=== PATIENT | female | born 1945 | race Caucasian/White ===

== ENCOUNTER 2020-01-01 16:41 | Inpatient (IN) | payer MEDICARE ==
[2020-01-01 17:27] LABS: #Eosinphils 0.2 thou/uL (0.0-0.7); #Lymphocytes 0.2 thou/uL (1.20-3.40); #Monocytes 0.4 thou/uL (0.11-0.59); #Neutrophils 4.1 thou/uL (1.40-6.50); %Basophils 0.6 % (0.0-1.0); %Lymphocytes 3.7 % (21.0-51.0); %Monocytes 8.1 % (0.0-10.0); %Neutrophils 83.6 % (42.0-75.0); Hemoglobin 9.2 g/dL (12.0-16.0); Mean Corpuscular HGB CONC 31.1 g/dL (32.0-36.0); Mean Corpuscular Hemoglobin 28.8 pg (27.0-31.0); Mean Corpuscular Volume 92.7 fL (78.0-98.0); Mean Platelet Volume 7.8 fL (7.4-10.4); Platelet Count 220 thou/uL (130-400); RBC Distribution Width 15.1 % (11.5-14.5); Red Blood Cell (RBC) Count 3.18 mill/uL (4.20-5.40); White Blood Cell (WBC) Count 4.8 thou/uL (4.8-10.8)
--- NOTE | 2020-01-01 17:27 | RAD ---
RADIOGRAPH CHEST 1 VIEW: DATE: 01/01/2020 TIME: 5:08 PM HISTORY: 74-year-old female with abdominal pain, nausea, and vomiting. History of uterine cancer. COMPARISON: none FINDINGS: There is a large number of small noncalcified pulmonary nodules in the bilateral upper, mid, and lowe r lung zones. No cardiomegaly. No consolidation. No pneumothorax. Left subclavian implantable vascular access port distal tip at SVC. IMPRESSION: Large number of small bilateral pulmonary nodules: Evidence for pulmonary metastasis.
[2020-01-01 17:43] LABS: ALT (SGPT) 31 U/L (8-55); AST (SGOT) 49 U/L (5-34); Alkaline Phosphatase 81 U/L (40-110); Anion Gap 19 mmol/L (10-20); BUN (Urea Nitrogen) 57 mg/dL (9.8-20.1); Bilirubin, Total 0.5 mg/dL (0.2-1.2); CK (CPK) 705 U/L (29-168); Calc. Creatinine Clearance 0 mL/min (70-130); Calcium 7.5 mg/dL (7.8-10.44); Carbon Dioxide 15 mmol/L (23-31); Chloride 110 mmol/L (98-107); Estimated GFR-MDRD 22; Globulin 2.5 g/dL (2.4-3.5); Glucose 115 mg/dL (83-110); Potassium 3.3 mmol/L (3.5-5.1); Protein, Total 5.5 g/dL (6.0-8.3); Sodium 141 mmol/L (136-145)
[2020-01-01 18:53] LABS: Bilirubin Negative (Negative); Blood, Urine Negative (Negative); Clarity Clear (Clear); Glucose, Urine (Dipstick) Normal (Negative); Leukocyte Negative Leu/uL (Negative); Nitrite Negative (Negative); Protein, Urine (Dipstick) 30 mg/dL (Neg-Trace); RBC/HPF 0-3 HPF (0-3); Squamous Epithelial 0-3 HPF (0-3); Urobilinogen Normal mg/dL (Less than 2); WBC/HPF 0-3 HPF (0-3)
[2020-01-01 18:56] LABS: Bacteria/HPF 1+ HPF (None Seen)
[2020-01-01 18:57] LABS: White Blood Cell Cast 0-3 LPF (None Seen)
--- NOTE | 2020-01-01 19:15 | PDOC.FPRHP ---
- History of Present Illness Chief Complaint: nausea, vomiting, decreased urine output History of Present Illness: 74 yo F with PMH uterine cancer is transferred from [facility]. Reports 2 day history of decreased PO intake, nausea, vomiting. Has had soft stool. Endorses decreased urine output that has fluctuated over the past weeks. Denies chest pain, SOB, difficulty breathing. Hx of uterine cancer under treatment for past [address] Whitfield manages chemo. Last treatment 3 weeks ago. Reports lower extremity edema and redness that patient believes is a side effect from morphine use. Notes this is improving. PCP: Dr. Ignacio in [place] ED Course: KCl 40 meq - Allergies/Adverse Reactions Allergies Allergy/AdvReac Type Severity Reaction Status Date / Time Penicillins Allergy Verified 11/17/19 00:37 - Home Medications Medication Instructions Recorded Confirmed Type Carvedilol [Coreg] 25 mg PO BID 01/01/20 01/01/20 History Morphine ER [MS Contin] 30 mg PO Q8HR 01/01/20 01/01/20 History - History PMHx: HTN, uterine cancer PSHx: Hysterectomy FHx: noncontributory Social: Denies tobacco, alcohol, drug use - Review of Systems General: reports: weight/appetite/sleep changes. denies: fever/chills ENT: denies: nasal congestion, rhinorrhea Respiratory: denies: cough, shortness of breath Cardiovascular: reports: edema. denies: chest pain, palpitation Gastrointestinal: reports: nausea, vomiting. denies: constipation, abdominal pain Genitourinary: reports: other (decreased output). denies: incontinence, dysuria Skin: denies: rashes, lesions Musculoskeletal: denies: pain, tenderness Neurological: reports: weakness. denies: seizure - Vital signs BP: 103/46 HR: 85 RR: 22 Tmax: 97.9 Pox: 95% on RA Wt: 116 - Physical Exam Constitutional: awake, alert and oriented, well developed HEENT: normocephalic and atraumatic, other (dry MM) Heart: RRR, other (3/6 systolic ejection murmur) Lungs: CTAB, no respiratory distress Abdomen: soft, non-tender, bowel sounds present, other (palpable density on R abdomen) Musculoskeletal: normal structure, normal tone Neurological: no focal deficit Skin: other (2-3+ pitting edema BLE, erythema up to shins) Psychiatric: normal mood and affect, intact recent and remote memory FMR H&P: Results - Labs Result Diagrams: 01/03/20 09:39 01/07/20 06:07 Lab results: WBC 4.8 thou/uL (4.8-10.8) 01/01/20 17:11 Hgb 9.2 g/dL (12.0-16.0) L 01/01/20 17:11 Hct 29.5 % (36.0-47.0) L 01/01/20 17:11 MCV 92.7 fL (78.0-98.0) 01/01/20 17:11 Plt Count 220 thou/uL (130-400) 01/01/20 17:11 Neutrophils % 83.6 % (42.0-75.0) H 01/01/20 17:11 Sodium 141 mmol/L (136-145) 01/01/20 17:11 Potassium 3.3 mmol/L (3.5-5.1) L 01/01/20 17:11 Chloride 110 mmol/L (98-107) H 01/01/20 17:11 Carbon Dioxide 15 mmol/L (23-31) L 01/01/20 17:11 BUN 57 mg/dL (9.8-20.1) H 01/01/20 17:11 Creatinine 2.21 mg/dL (0.6-1.1) H 01/01/20 17:11 Glucose 115 mg/dL (83-110) H 01/01/20 17:11 Calcium 7.5 mg/dL (7.8-10.44) L 01/01/20 17:11 Total Bilirubin 0.5 mg/dL (0.2-1.2) 01/01/20 17:11 AST 49 U/L (5-34) H 01/01/20 17:11 ALT 31 U/L (8-55) 01/01/20 17:11 Alkaline Phosphatase 81 U/L (40-110) 01/01/20 17:11 Creatine Kinase 705 U/L (29-168) H 01/01/20 17:11 Serum Total Protein 5.5 g/dL (6.0-8.3) L 01/01/20 17:11 Albumin 3.0 g/dL (3.4-4.8) L 01/01/20 17:11 Urine Ketones Negative mg/dL (Negative) 01/01/20 17:57 Urine Blood Negative (Negative) 01/01/20 17:57 Urine Nitrite Negative (Negative) 01/01/20 17:57 Ur Leukocyte Esterase Negative Reggie/uL (Negative) 01/01/20 17:57 Urine RBC 0-3 HPF (0-3) 01/01/20 17:57 Urine WBC 0-3 HPF (0-3) 01/01/20 17:57 Ur Squamous Epith Cells 0-3 HPF (0-3) 01/01/20 17:57 Urine Bacteria 1+ HPF (None Seen) A 01/01/20 17:57 - Radiology Interpretation Chest x-ray Status: report reviewed by me Additional comment: numerous small bilateral pulmonary nodules consistent with metastatic disease FMR H&P: A/P - Plan 74 yo F with PMH metastatic uterine cancer transferred from [facility] for dehydration and kidney injury. ANIBAL on CKD3 2/2 hypovolemia, dehydration - patient appears dehydrated on exam - Cr 2.21, CK 705 Bun/Cr 23 - ordered 1L bolus, then continue LR @ 125 - Likely prerenal. Urine studies ordered to calculate Fena. - UA negative for infection-1+ bacteria but neg nitrites, LE. - Consider cardiorenal, bnp pending; however, unknown extent of abd mass and consider compression of IVC Nausea/vomiting - antiemetics prn Hypokalemia - replaced with 40meq in ED - recheck in am Metastatic uterine cancer - metastasis in abdomen, lung - Oncology, Dr. Whitfield consult in AM, was due for keytruda chemo today, delayed for NV - has been on Keytruda Lower extremity edema - likely 2/2 chronic venous stasis but will check BNP - patient notes she previously used compression stocking but edema has improved without them - monitor strict IsOs Normocytic anemia - stable compared to prior HTN - hold home carvedilol for now, will restart when BP can tolerate Diet: advance as tolerated DVT ppx: Lovenox renally dosed Attending: Dispo: admit to medical floor, inpatient. Expected LOS >48 hours Code Status: Chem only "no extraordinary measures" no compression no intubation FMR H&P: Upper Level - Plan Date/Time: 01/01/201912 UL H&P Dr Desire Alvarez scribed encounter Addendum - Attending - Attending Attestation Date/Time: 01/07/20 220 I personally evaluated the patient and discussed the management with Dr. Calle on I agree with the History, Examination, Assessment and Plan documented above with any addition or exceptions noted below. 74 y.o. WF with h/o Metastatic uterine CA here with intractable N/V, ANIBAL, hip pain. IvF resuscitation/antiemetics. Onc consult for continued malignancy mgt.
[2020-01-01] MEDS ORDERED: Ondansetron ODT 4 MG TAB PO PRN (19:33)
[2020-01-01] MEDS ORDERED: Calcium Carbonate 500 MG ChewTAB PO PRN (19:33)
[2020-01-01] MEDS ORDERED: HYDROcodone/Acetaminophen 7.5/325 mg Tablet PO PRN (19:33)
[2020-01-01] MEDS ORDERED: Acetaminophen 325 MG TAB PO PRN (19:33)
[2020-01-01] MEDS ORDERED: Acetaminophen 650 MG Suppository PR PRN (19:33)
[2020-01-01] MEDS: Lactated Ringer's 1,000 ML IV SCH (22:34)
[2020-01-01 22:36] VITALS: BMI 37.7
[2020-01-01] MEDS ORDERED: Lactated Ringer's 1,000 ML IV SCH (23:59)
[2020-01-02] MEDS: Lactated Ringer's 1,000 ML IV SCH ×3 (04:40→20:48)
[2020-01-02 06:11] LABS: ALT (SGPT) 28 U/L (8-55); AST (SGOT) 47 U/L (5-34); Albumin 2.8 g/dL (3.4-4.8); Alkaline Phosphatase 71 U/L (40-110); Anion Gap 16 mmol/L (10-20); BUN (Urea Nitrogen) 58 mg/dL (9.8-20.1); Bilirubin, Total 0.5 mg/dL (0.2-1.2); Calc. Creatinine Clearance 42 mL/min (70-130); Calcium 7.2 mg/dL (7.8-10.44); Carbon Dioxide 15 mmol/L (23-31); Chloride 113 mmol/L (98-107); Estimated GFR-MDRD 23; Globulin 2.3 g/dL (2.4-3.5); Glucose 82 mg/dL (83-110); Potassium 3.1 mmol/L (3.5-5.1); Protein, Total 5.1 g/dL (6.0-8.3); Sodium 141 mmol/L (136-145)
--- NOTE | 2020-01-02 06:56 | PDOC.FM ---
- Subjective Subjective: Doing well this morning. Was sleeping comfortably. - Objective MAR Reviewed: Yes Vital Signs & Weight: Vital Signs (12 hours) Temp Pulse Resp BP Pulse Ox 01/02/20 04:00 98.0 F 82 20 109/64 93 L 01/02/20 02:04 105/62 01/02/20 00:28 97.8 F 86 20 105/60 94 L 01/01/20 20:00 94 L 01/01/20 19:40 98.1 F 89 18 121/56 L 94 L 01/01/20 19:35 94 L Weight Weight 112.536 kg Result Diagrams: 01/01/20 17:11 01/02/20 05:19 Phys Exam - Physical Examination Constitutional: NAD HEENT: PERRLA, moist MMs Neck: no nodes, no JVD Respiratory: no wheezing, no rales, no rhonchi, clear to auscultation bilateral Cardiovascular: RRR, no significant murmur, no rub Gastrointestinal: soft, non-tender Musculoskeletal: edema present Bilateral pitting edema. Venous stasis dermatitis bandaged. Neurological: non-focal, moves all 4 limbs Psychiatric: normal affect, A&O x 3 Skin: no rash, normal turgor Dx/Plan (1) ANIBAL (acute kidney injury) Code(s): N17.9 - ACUTE KIDNEY FAILURE, UNSPECIFIED Status: Acute (2) Uterine cancer Code(s): C55 - MALIGNANT NEOPLASM OF UTERUS, PART UNSPECIFIED Status: Acute (3) HTN (hypertension) Code(s): I10 - ESSENTIAL (PRIMARY) HYPERTENSION Status: Acute (4) Edema Code(s): R60.9 - EDEMA, UNSPECIFIED Status: Acute (5) Hypokalemia Code(s): E87.6 - HYPOKALEMIA Status: Acute - Plan Plan: 74 yo F with PMH metastatic uterine cancer transferred from [place] for dehydration and kidney injury. ANIBAL on CKD3 2/2 hypovolemia, dehydration - Prerenal FeNa. - On 125mL/hr LR. Reluctant to increase fluids in setting of lower extremity edema. Will monitor fluid status closely. - Cr: 2.21 > 2.11 - UA negative for infection-1+ bacteria but neg nitrites, LE. Nausea/vomiting - antiemetics prn Hypokalemia - 3.1 this morning. K-dur 40 po BID. - Mag level pending. Metastatic uterine cancer - metastasis in abdomen, lung - Oncology, Dr. Whitfield consult in AM, was due for chemo today, delayed for NV - has been on Keytruda Lower extremity edema - likely 2/2 chronic venous stasis but will check BNP - patient notes she previously used compression stocking but edema has improved without them - monitor strict IOs. - ECHO ordered, no history of heart failure in chart review. Normocytic anemia - stable compared to prior HTN - hold home carvedilol for now, will restart when BP can tolerate Diet: advance as tolerated DVT ppx: Lovenox renally dosed Dispo: admit to medical floor, inpatient. Expected LOS >48 hours Code Status: Chem only "no extraordinary measures" no compression no intubation Addendum - Attending - Attending Attestation Date/Time: 01/02/20 1230 I personally evaluated the patient and discussed the management with Dr. Richards I agree with the History, Examination, Assessment and Plan documented above with any addition or exceptions noted below - Patient c/o feeling like she needs to urinate but is unable. Afebrile VSS. A/P: 1) N/V - improved; continue anti-emetics. 2) ANIBAL- Cr improved but still not back to baseline; continue IVF 3 ) Decreased urination- will check bladder scan and I/O cath if needed.
[2020-01-02] MEDS: HYDROcodone/Acetaminophen 7.5/325 mg Tablet PO PRN (08:51)
[2020-01-02] MEDS: Potassium Chloride 20 MEQ TAB PO SCH ×2 (08:53→15:52)
[2020-01-02] MEDS: Gabapentin 100 MG CAP PO SCH ×3 (08:53→20:44)
[2020-01-02] MEDS ORDERED: Enoxaparin Sodium 30 MG/0.3 ML SYRINGE SC SCH (09:00)
[2020-01-02] MEDS: Morphine 4 MG/ML VIAL SLOW IVP PRN (11:45)
--- NOTE | 2020-01-02 19:45 | CON ---
DATE OF CONSULTATION: REASON FOR CONSULTATION: Uterine cancer. HISTORY OF PRESENT ILLNESS: Ms. 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 She has undergone multiple chemotherapy treatment. She had imaging done in October, which showed progression in her pelvis. She has chronic left pelvic pain and noted soft tissue mass. She was started on IV Keytruda immunotherapy and was to begin oral chemotherapy lenvatinib. She received her first dose of cultured on December 10 and was due for her second cycle yesterday. She has received the oral lenvatinib, but has not started the medication. She called our clinic yesterday complaining of severe lower extremity pain, swelling, and nausea. She eventually presented to the emergency room for further evaluation. Her creatinine was elevated at 2.21 and she was diagnosed with dehydration and acute kidney injury as well as intractable pain and was admitted for further treatment. This morning, she states that her lower extremity edema is better, but she continues to have left buttock pain consistent with sciatica. She is having urinary retention this morning and is having significant discomfort from this. PAST MEDICAL HISTORY: 1. Metastatic uterine cancer. 2. Chronic bilateral lower extremity edema. 3. Hypertension. 4. Aseptic cholelithiasis. PAST SURGICAL HISTORY: 1. Hysterectomy. 2. Tumor debulking. ALLERGIES: PENICILLIN. HOME MEDICATIONS: 1. Carvedilol 25 b.i.d. 2. Hydrocodone 10/325 p.r.n. 3. Lenvima two caplets daily. 4. MS Contin 30 mg q.8 hours. FAMILY HISTORY: Noncontributory. SOCIAL HISTORY: She is . No children. Lives with her spouse. No alcohol, tobacco, or illicit drug use. REVIEW OF SYSTEMS: Ten-point review of systems negative except for noted in HPI. PHYSICAL EXAMINATION: VITAL SIGNS: Temperature 97.9, pulse is 85, respiratory rate 20, blood pressure is 119/57, and she is 95% on room air. GENERAL: Well-developed, well-nourished female, in mild discomfort. HEENT: Normocephalic, atraumatic. Pupils are equal and reactive to light. NECK: Supple. CARDIOVASCULAR: Regular rate and rhythm. LUNGS: Clear anterior. ABDOMEN: Obese. Bowel sounds are positive. She does have tenderness in the pubic area. EXTREMITIES: She has 3+ pitting edema from her upper thigh to her toes with weeping edema in the left leg. NEUROLOGIC: Nonfocal. PERTINENT LABS AND X-RAYS: Current WBCs are 4.8, hemoglobin 9.2, hematocrit 29.5, platelet count is 220, 84% neutrophils, 4% lymphocytes. Sodium is 141, potassium 3.1, chloride 113, CO2 is 15, BUN is 58, creatinine 2.11, calcium 7.2, magnesium 1.2, bilirubin 0.5, AST is 47, ALT is 28, alkaline phosphatase is 71, serum total protein is 5.1, albumin 2.8, and globulin 2.3. BNP is 290. UA was negative. Chest x-ray showed pulmonary nodules consistent with her metastatic disease. ASSESSMENT: 1. Acute on chronic kidney injury. 2. Uterine cancer. 3. Urinary retention. 4. Dehydration. 5. Chronic bilateral lower extremity edema. DISCUSSION: The patient has been receiving IV fluids with minimal improvement in her kidney function. She now has urinary retention and anticipate catheter insertion shortly. She continues to have significant left hip pain, likely secondary to distended bladder and fluid overload. We would continue her MS Contin and her hydrocodone. She has not started her oral chemotherapy and we would continue to hold during this hospitalization. She will follow up in our clinic to resume treatment with Dr. Whitfield when she recovers from this illness. Thank you for the consult. Job ID: [id number] MTDD
[2020-01-02] MEDS: Morphine ER 30 MG TAB PO SCH (20:44)
[2020-01-02] MEDS: Heparin 5,000 UNITS/ML VIAL SC SCH (20:44)
[2020-01-03] MEDS: Lactated Ringer's 1,000 ML IV SCH ×2 (04:09→16:02)
[2020-01-03 06:19] LABS: Anion Gap 16 mmol/L (10-20); BUN (Urea Nitrogen) 50 mg/dL (9.8-20.1); Calc. Creatinine Clearance 57 mL/min (70-130); Calcium 7.6 mg/dL (7.8-10.44); Carbon Dioxide 16 mmol/L (23-31); Chloride 115 mmol/L (98-107); Estimated GFR-MDRD 32; Glucose 80 mg/dL (83-110); Potassium 3.5 mmol/L (3.5-5.1); Sodium 143 mmol/L (136-145)
--- NOTE | 2020-01-03 07:19 | PDOC.FM ---
- Subjective Subjective: Doing well this morning. Less nauseated than yesterday. Tolerating oral intake, with mild nausea. - Objective MAR Reviewed: Yes Vital Signs & Weight: Vital Signs (12 hours) Temp Pulse Resp BP Pulse Ox 01/03/20 04:00 99.2 F 84 20 126/70 95 01/03/20 00:00 99.2 F 83 20 143/70 H 94 L 01/02/20 20:00 95 01/02/20 19:32 98.4 F 83 20 116/66 95 Weight Admit Weight 112.536 kg Weight 112.536 kg I&O: 01/02/20 01/03/20 01/04/20 06:59 06:59 06:59 Intake Total 3640 Output Total 2250 Balance 1390 Result Diagrams: 01/03/20 09:39 01/03/20 05:31 Phys Exam - Physical Examination Constitutional: NAD HEENT: PERRLA, moist MMs Neck: supple, full ROM Respiratory: no wheezing, no rales, no rhonchi, clear to auscultation bilateral Cardiovascular: RRR, no significant murmur, no rub Gastrointestinal: soft, non-tender Musculoskeletal: edema present Neurological: non-focal, normal sensation Psychiatric: normal affect, A&O x 3 Skin: normal turgor Dx/Plan (1) ANIBAL (acute kidney injury) Code(s): N17.9 - ACUTE KIDNEY FAILURE, UNSPECIFIED Status: Acute (2) Uterine cancer Code(s): C55 - MALIGNANT NEOPLASM OF UTERUS, PART UNSPECIFIED Status: Acute (3) HTN (hypertension) Code(s): I10 - ESSENTIAL (PRIMARY) HYPERTENSION Status: Acute (4) Edema Code(s): R60.9 - EDEMA, UNSPECIFIED Status: Acute (5) Hypokalemia Code(s): E87.6 - HYPOKALEMIA Status: Acute - Plan Plan: 74 yo F with PMH metastatic uterine cancer transferred from [place] for dehydration and kidney injury. ANIBAL on CKD3 2/2 hypovolemia, dehydration - Prerenal FeNa. - Has been on 125mL/hr LR, will reduce to 75ml/hr today and monitor intake. - Cr: 2.21 > 2.11 > 1.57 - UA negative for infection-1+ bacteria but neg nitrites, LE. Culture pending. Nausea/vomiting - antiemetics prn Hypokalemia, hypomagnesemia - 3.5 this morning. Mag low. will replace mag. Metastatic uterine cancer - metastasis in abdomen, lung - Oncology, Dr. Whitfield consulted, was due for chemo today, delayed for NV. - has been on Keytruda Lower extremity edema - likely 2/2 chronic venous stasis but will check BNP - monitor strict IOs. - ECHO EF 55-60%. Diastolic dysfunction. Normocytic anemia - stable compared to prior HTN - hold home carvedilol for now, will restart when BP can tolerate Diet: advance as tolerated DVT ppx: Lovenox renally dosed Dispo: admit to medical floor, inpatient. Expected LOS >48 hours Code Status: Chem only "no extraordinary measures" no compression no intubation Addendum - Attending - Attending Attestation Date/Time: 01/03/20 9188 I personally evaluated the patient and discussed the management with Dr. Richards I agree with the History, Examination, Assessment and Plan documented above with any addition or exceptions noted below - Patient c/o back pain when she moves; controlled when lying still. Tm101.8 VSS. A/P: 1) ANIBAL- improved; continue IVF due to poor po intake. 2) Fever- urine culture negative to date. Will obtain blood cultures; continue monitoring. Incentive spirometer to bedside. 3) Left hip pain/back pain h/o fall 1 week ago- will check hip x-ray.
[2020-01-03] MEDS ORDERED: Magnesium 2 GM/50 ML 2 GM in Premix Bag 1 BAG IVPB SCH (07:30)
[2020-01-03] MEDS: Morphine ER 30 MG TAB PO SCH ×2 (08:32→20:28)
[2020-01-03] MEDS: Gabapentin 100 MG CAP PO SCH ×3 (08:34→20:28)
[2020-01-03] MEDS: Heparin 5,000 UNITS/ML VIAL SC SCH ×3 (08:34→20:28)
[2020-01-03 09:48] LABS: #Eosinphils 0.3 thou/uL (0.0-0.7); #Lymphocytes 0.6 thou/uL (1.20-3.40); #Monocytes 0.6 thou/uL (0.11-0.59); #Neutrophils 3.8 thou/uL (1.40-6.50); %Basophils 0.5 % (0.0-1.0); %Eosinophils 5.4 % (0.0-10.0); %Lymphocytes 11.2 % (21.0-51.0); %Monocytes 11.5 % (0.0-10.0); %Neutrophils 71.3 % (42.0-75.0); Hemoglobin 8.4 g/dL (12.0-16.0); Mean Corpuscular HGB CONC 31.2 g/dL (32.0-36.0); Mean Corpuscular Hemoglobin 28.7 pg (27.0-31.0); Mean Platelet Volume 7.7 fL (7.4-10.4); Platelet Count 220 thou/uL (130-400); RBC Distribution Width 15.2 % (11.5-14.5); Red Blood Cell (RBC) Count 2.92 mill/uL (4.20-5.40); White Blood Cell (WBC) Count 5.3 thou/uL (4.8-10.8)
[2020-01-03] MEDS: HYDROcodone/Acetaminophen 7.5/325 mg Tablet PO PRN (10:39)
--- NOTE | 2020-01-03 11:17 | PDOC.MOPN ---
Interval History: severe left hip pain with movement. Unable to move leg. - Vital Signs Vital Signs: Vital Signs (12 hours) Temp Pulse Resp BP BP Pulse Ox 01/03/20 08:51 98.8 F 01/03/20 07:50 101.8 F H 89 18 134/68 94 L 01/03/20 04:00 99.2 F 84 20 126/70 95 01/03/20 00:00 99.2 F 83 20 143/70 H 94 L Weight Admit Weight 248 lb 1.6 oz Weight 248 lb 1.6 oz - Physical Exam General: Alert HEENT: Atraumatic, PERRLA, EOMI, Mucous membr. moist/pink Lungs: Clear to auscultation Cardiovascular: Regular rate Abdomen: Normal bowel sounds Extremities: Other Neurological: Normal speech - Labs Result Diagrams: 01/03/20 09:39 01/03/20 05:31 Lab results: Laboratory Results - last 24 hr 01/03/20 09:39: WBC 5.3, RBC 2.92 L, Hgb 8.4 L, Hct 26.9 L, MCV 92.0, MCH 28.7, MCHC 31.2 L, RDW 15.2 H, Plt Count 220, MPV 7.7, Neutrophils % 71.3, Lymphocytes % 11.2 L, Monocytes % 11.5 H, Eosinophils % 5.4, Basophils % 0.5, Neutrophils # 3.8, Lymphocytes # 0.6 L, Monocytes # 0.6 H, Eosinophils # 0.3, Basophils # 0.0 01/03/20 05:31: Sodium 143, Potassium 3.5, Chloride 115 H, Carbon Dioxide 16 L, Anion Gap 16, BUN 50 H, Creatinine 1.57 H, Estimated GFR (MDRD) 32, Glucose 80 L , Calcium 7.6 L Status: lab reviewed by me A/P - Problem (1) Leg pain, left Current Visit: Yes Code(s): M79.605 - PAIN IN LEFT LEG Status: Acute (2) ANIBAL (acute kidney injury) Current Visit: Yes Code(s): N17.9 - ACUTE KIDNEY FAILURE, UNSPECIFIED Status : Acute (3) Uterine cancer Current Visit: Yes Code(s): C55 - MALIGNANT NEOPLASM OF UTERUS, PART UNSPECIFIED Status: Acute - Plan Plan: will get xray of left hip NPO for now until xray complete continue pain medication Appreciate Family Practice management
[2020-01-03] MEDS: Morphine 4 MG/ML VIAL SLOW IVP PRN ×2 (11:32→18:13)
--- NOTE | 2020-01-03 11:33 | PDOC.MOPN ---
- Vital Signs Vital Signs: Vital Signs (12 hours) Temp Pulse Resp BP BP Pulse Ox 01/03/20 08:51 98.8 F 01/03/20 07:50 101.8 F H 89 18 134/68 94 L 01/03/20 04:00 99.2 F 84 20 126/70 95 01/03/20 00:00 99.2 F 83 20 143/70 H 94 L Weight Admit Weight 248 lb 1.6 oz Weight 248 lb 1.6 oz - Labs Result Diagrams: 01/03/20 09:39 01/03/20 05:31 Lab results: Laboratory Results - last 24 hr 01/03/20 09:39: WBC 5.3, RBC 2.92 L, Hgb 8.4 L, Hct 26.9 L, MCV 92.0, MCH 28.7, MCHC 31.2 L, RDW 15.2 H, Plt Count 220, MPV 7.7, Neutrophils % 71.3, Lymphocytes % 11.2 L, Monocytes % 11.5 H, Eosinophils % 5.4, Basophils % 0.5, Neutrophils # 3.8, Lymphocytes # 0.6 L, Monocytes # 0.6 H, Eosinophils # 0.3, Basophils # 0.0 01/03/20 05:31: Sodium 143, Potassium 3.5, Chloride 115 H, Carbon Dioxide 16 L, Anion Gap 16, BUN 50 H, Creatinine 1.57 H, Estimated GFR (MDRD) 32, Glucose 80 L , Calcium 7.6 L A/P - Problem (1) Leg pain, left Current Visit: Yes Code(s): M79.605 - PAIN IN LEFT LEG Status: Acute (2) ANIBAL (acute kidney injury) Current Visit: Yes Code(s): N17.9 - ACUTE KIDNEY FAILURE, UNSPECIFIED Status : Acute (3) Uterine cancer Current Visit: Yes Code(s): C55 - MALIGNANT NEOPLASM OF UTERUS, PART UNSPECIFIED Status: Acute
--- NOTE | 2020-01-03 12:58 | RAD ---
Exam: One view pelvis HISTORY: Fall. Pain FINDINGS: Displaced left iliac wing fracture. IMPRESSION: Displaced left iliac wing fracture.
--- NOTE | 2020-01-03 13:22 | RAD ---
LEFT HIP 2 VIEWS: HISTORY: Hip pain, fall 1 week ago. FINDINGS/IMPRESSION: There is a fracture involving the supraacetabular region of the left iliac bone. A displaced fractur e fragment is seen laterally. There is a sclerotic appearance of the left iliac bone suspicious for metastatic disease. POS: [facility]
[2020-01-03] MEDS ORDERED: Methocarbamol 500 MG TAB PO PRN (15:33)
[2020-01-03] MEDS: Senokot S 8.6-50 MG TAB PO SCH (20:29)
--- NOTE | 2020-01-03 22:22 | CON ---
DATE OF CONSULTATION: CHIEF COMPLAINT: Left pelvic pain. HISTORY OF PRESENT ILLNESS: Ms. Viveros is a 74-year-old female, who has a history of uterine cancer, which is recurrent. She thinks she has at least local spread and possibly into her pelvis. She fell one week ago. She had severe pain in the left hip. She did not seek treatment immediately because she does have chronic pain related to her cancer. She has been on immunotherapy recently and has had several courses of chemotherapy. She was seen in the emergency department and x-rays were obtained. These demonstrated an iliac wing fracture. She has been admitted to the hospital and has had pain control today. Today, she feels good, but she has not moved. Orthopedics was consulted to evaluate her iliac wing fracture. She is currently resting comfortably. PAST MEDICAL HISTORY: Metastatic uterine cancer, hypertension, cholelithiasis. She has a history of chronic venous stasis with lower extremity edema. PAST SURGICAL HISTORY: Hysterectomy and other uterine cancer tumor surgeries. ALLERGIES: TO PENICILLIN. MEDICATIONS: 1. MS Contin. 2. Lenvima. 3. Hydrocodone. 4. Carvedilol. FAMILY MEDICAL HISTORY: Noncontributory. REVIEW OF SYSTEMS: Positive for left hip pain especially with any movement. Otherwise, negative 10-point review of systems. SOCIAL HISTORY: The patient denies tobacco, alcohol, or drug use. She walks independently. DIAGNOSTIC STUDIES: Images; x-rays of the pelvis and hip demonstrate an iliac wing fracture. This is extra-articular. This is displaced. Her left hemipelvis has a mottled appearance with areas of sclerosis consistent with possible metastatic disease. PHYSICAL EXAMINATION: VITAL SIGNS: Temperature is 99.4, pulse is 76, respiratory rate is 16, oxygen saturation 95%, and blood pressure is 127/67. GENERAL: She is alert and oriented, lying supine, in no apparent distress. HEENT: Normocephalic and atraumatic. RESPIRATORY: Breathing comfortably. ABDOMEN: Soft, nontender, and nondistended. MUSCULOSKELETAL: The patient's left lower extremity has pain with any movement. She has pain to palpation over the iliac crest. She has ecchymosis and some swelling of her thigh. She is able to flex and extend the foot and ankle and is neurovascularly intact distally. She has some weeping drainage at her lower extremities bilaterally. IMPRESSION: Iliac wing fracture in a patient with metastatic uterine cancer, likely with bony metastasis. PLAN: I would like to obtain a CT scan to better study the fracture as well as evaluate the bone for lesions. Given the patient's medical conditions, I think she would be a high risk candidate for an invasive surgery such as pelvic fracture fixation. I would like to treat her nonoperatively. She will need pain control. She will need to have assistance with mobility. We will discuss with her further after CT scan is complete tomorrow morning, but for now, I would not plan for surgical intervention. Job ID: [id number]
[2020-01-04] MEDS: Lactated Ringer's 1,000 ML IV SCH ×3 (01:50→21:03)
[2020-01-04 06:17] LABS: Anion Gap 14 mmol/L (10-20); BUN (Urea Nitrogen) 36 mg/dL (9.8-20.1); Calc. Creatinine Clearance 69 mL/min (70-130); Calcium 7.9 mg/dL (7.8-10.44); Carbon Dioxide 19 mmol/L (23-31); Chloride 114 mmol/L (98-107); Estimated GFR-MDRD 41; Glucose 94 mg/dL (83-110); Potassium 3.1 mmol/L (3.5-5.1); Sodium 144 mmol/L (136-145)
--- NOTE | 2020-01-04 07:39 | PDOC.FM ---
- Subjective Subjective: Doing well this morning, other than severe L hip pain. She states it hurts because of the transfers for the CT scan. - Objective MAR Reviewed: Yes Vital Signs & Weight: Vital Signs (12 hours) Temp Pulse Resp BP Pulse Ox 01/03/20 20:00 99.3 F 82 20 133/69 93 L Weight Admit Weight 112.536 kg Weight 112.536 kg I&O: 01/03/20 01/04/20 01/05/20 06:59 06:59 06:59 Intake Total 3640 900 Output Total 2250 2550 Balance 1390 -1650 Result Diagrams: 01/03/20 09:39 01/04/20 05:33 Phys Exam - Physical Examination Constitutional: NAD HEENT: PERRLA, moist MMs Neck: supple Respiratory: no wheezing, no rales, no rhonchi, clear to auscultation bilateral Cardiovascular: RRR, no significant murmur Gastrointestinal: soft, non-tender Dx/Plan (1) ANIBAL (acute kidney injury) Code(s): N17.9 - ACUTE KIDNEY FAILURE, UNSPECIFIED Status: Acute (2) Uterine cancer Code(s): C55 - MALIGNANT NEOPLASM OF UTERUS, PART UNSPECIFIED Status: Acute (3) HTN (hypertension) Code(s): I10 - ESSENTIAL (PRIMARY) HYPERTENSION Status: Acute (4) Edema Code(s): R60.9 - EDEMA, UNSPECIFIED Status: Acute (5) Hypokalemia Code(s): E87.6 - HYPOKALEMIA Status: Acute - Plan Plan: 74 yo F with PMH metastatic uterine cancer transferred from [place] for dehydration and kidney injury. ANIBAL on CKD3 2/2 hypovolemia, dehydration - Prerenal FeNa. - Has been on 125mL/hr LR, will reduce to 75ml/hr today and monitor intake. - Cr: 2.21 > 2.11 > 1.57 > 1.29 - UA negative for infection-1+ bacteria but neg nitrites, LE. Culture pending. Left iliac wing fracture - Patient fell 1 week ago, was not mentioned during admission. - XRay done yesterday. Ortho consulted. CT Pelvis pending this morning. Appreciate recs. - CT shows several fractures in the left bony pelvis. Shows combination of large soft tissue malignant metastatic tumor and traumatic hematoma. Nausea/vomiting - antiemetics prn Hypokalemia, hypomagnesemia - 3.1 this morning. Will replace PO. Metastatic uterine cancer - metastasis in abdomen, lung - Oncology, Dr. Whitfield consulted, was due for chemo today, delayed for NV. - has been on Keytruda Lower extremity edema - likely 2/2 chronic venous stasis but will check BNP - monitor strict IOs. - ECHO EF 55-60%. Diastolic dysfunction. Normocytic anemia - stable compared to prior HTN -Will restart home medication (Coreg) Diet: advance as tolerated DVT ppx: Lovenox renally dosed Dispo: admit to medical floor, inpatient. Expected LOS >48 hours Code Status: Chem only "no extraordinary measures" no compression no intubation Addendum - Attending - Attending Attestation Date/Time: 01/04/20 2951 I personally evaluated the patient and discussed the management with Dr. Richards I agree with the History, Examination, Assessment and Plan documented above with any addition or exceptions noted below- Patient complaining of left hip. Had recently been moved. Tm 100.5 VSS A/P: 1) ANIBAL- improved; N/V resolved. 2) Left hip fracture/pain- appreciate orthopedics assistance/recommendations. CT pelvis shows probable pathologic fracture. Will discuss with oncology and ortho further recommendations. 3) Left pelvic/hip soft tissue mass (combination of tumor and hematoma)- will discuss with oncology.
[2020-01-04] MEDS ORDERED: Potassium Chloride 20 MEQ TAB PO SCH (07:45)
[2020-01-04] MEDS: Senokot S 8.6-50 MG TAB PO SCH ×2 (08:45→20:51)
[2020-01-04] MEDS: Gabapentin 100 MG CAP PO SCH ×3 (08:45→20:50)
[2020-01-04] MEDS: Heparin 5,000 UNITS/ML VIAL SC SCH ×3 (08:45→20:51)
[2020-01-04] MEDS: Morphine ER 30 MG TAB PO SCH ×2 (08:45→20:49)
--- NOTE | 2020-01-04 08:55 | CT ---
CT pelvis noncontrast: DATE: 01/04/2020 HISTORY: 74-year-old female with metastatic ovarian cancer with left pelvic pain due to fall 7 days ago. COMPARISON: Attenuation correction CT images for the PET scan of 02/08/2015 FINDINGS: There is a new finding of diffuse sclerosis of the left acetabulum, left superior pubic ramus, left i nferior ramus, left ischial tuberosity, left pubic body, and the inferior portion of the left iliac wing. There is mildly comminuted and mildly displaced fracture of the left iliac wing. There is minim ally displaced fracture at the posterior edge of the left initial tuberosity. Nondisplaced fracture multiple linear lucencies of the posterior column of the acetabulum. New finding of large circumferential soft tissue density mass surrounding the left hip, left iliac wi ng, especially of the left iliac this muscle, surrounding the left obturator internus muscle, along the left pelvic sidewall. It is uncertain how much of this represents neoplastic metastatic tumor com ponent and how much represents acute hematoma. There is severe fat stranding and infiltrating fluid, which may be a combination of edema and soft ti ssue hemorrhage, around the left hip extending into the left thigh involving both subcutaneous fat and deep spaces around muscles of the thigh and hip. Bilateral proximal femurs appear normal. No fracture is identified involving the sacrum or right side of the pelvis. Suture line along bowel loop in the pelvic cavity. Warner catheter within completely empty urinary maurizio dder. Soft tissue thickening and fat stranding in the presacral space. IMPRESSION: 1. Several fractures involving an abnormal left bony pelvis. This probably represents acute, traumati c and pathologic fractures of metastatic lesion involves pathologic bone. 2. The fracture of the left iliac wing is comminuted and mildly displaced. 3. Fractures of left acetabulum and ischial tuberosity are nondisplaced. 4. Combination of large soft tissue malignant metastatic tumor component and traumatic hematoma, invo lving the left hip and left thigh
[2020-01-04] MEDS ORDERED: Carvedilol 25 MG TAB PO SCH (09:15)
[2020-01-04] MEDS ORDERED: Magnesium 2 GM/50 ML 2 GM in Premix Bag 1 BAG IVPB SCH (10:00)
--- NOTE | 2020-01-04 13:25 | PDOC.MOPN ---
Interval History: pain controlled at this time - Vital Signs Vital Signs: Vital Signs (12 hours) Temp Pulse Resp BP BP Pulse Ox 01/04/20 11:40 99.9 F H 89 18 151/79 H 92 L 01/04/20 08:00 93 L 01/04/20 07:59 100.5 F H 98 18 154/72 H 93 L Weight Admit Weight 248 lb 1.6 oz Weight 248 lb 1.6 oz - Physical Exam General: Alert, Oriented x3, No acute distress HEENT: Atraumatic, PERRLA, EOMI, Mucous membr. moist/pink Lungs: Clear to auscultation, Normal air movement Cardiovascular: Regular rate, Normal S1, Normal S2, No murmurs, Gallops, Rubs Abdomen: Normal bowel sounds, Soft, No tenderness, No hepatospenomegaly, No masses Extremities: Other Neurological: Normal speech - Labs Result Diagrams: 01/03/20 09:39 01/04/20 05:33 Lab results: Laboratory Results - last 24 hr 01/04/20 05:33: Magnesium 1.6 01/04/20 05:33: Sodium 144, Potassium 3.1 L, Chloride 114 H, Carbon Dioxide 19 L , Anion Gap 14, BUN 36 H, Creatinine 1.29 H, Estimated GFR (MDRD) 41, Glucose 94 , Calcium 7.9 Status: lab reviewed by me A/P - Problem (1) Leg pain, left Current Visit: Yes Code(s): M79.605 - PAIN IN LEFT LEG Status: Acute (2) ANIBAL (acute kidney injury) Current Visit: Yes Code(s): N17.9 - ACUTE KIDNEY FAILURE, UNSPECIFIED Status : Acute (3) Uterine cancer Current Visit: Yes Code(s): C55 - MALIGNANT NEOPLASM OF UTERUS, PART UNSPECIFIED Status: Acute - Plan Plan: CT scan findings noted. No surgical intervention planned at this time. Discussed with Dr. Whitfield and Dr. Dumont. Possible XRT to area for pain relief. Continue pain medications.
[2020-01-04] MEDS: HYDROcodone/Acetaminophen 7.5/325 mg Tablet PO PRN (17:11)
[2020-01-04] MEDS: Carvedilol 25 MG TAB PO SCH (20:52)
--- NOTE | 2020-01-04 22:08 | CON ---
DATE OF CONSULTATION: 01/04/2020 REASON FOR CONSULTATION: Ms. Viveros is a 74-year-old female with a history of metastatic ovarian/endometrial cancer. I was asked to see her because of pathological fracture from bone metastasis. HISTORY OF PRESENT ILLNESS: Ms. Viveros's diagnosis of cancer actually goes back quite some time. Apparently in 2010, she was found to have a fairly extensive pelvic mass. It was not totally clear whether this is ovarian or endometrial in origin. She apparently underwent surgery by Dr. Solorzano in [place], and the mass was able to be debulked, but not completely removed in its entirety. This pathology per my conversation with Dr. 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 She was treated with chemotherapy since that time. She has been treated with multiple different chemotherapy agents and has responded fairly well. More recently, she had some disease progression and it was decided to treat her with Keytruda and a tyrosine kinase inhibitor. She started the Keytruda, but has not started the tyrosine kinase inhibitor. Last , she had a fall and subsequently not too long after that began experiencing increased pain in the left hip region, which radiates down her leg. The pain in the left hip has been present for some time and fairly constant, but was much worse after the fall. She then developed some nausea and vomiting and subsequently was admitted to the hospital for workup and evaluation. The nausea and vomiting have resolved. Presently, her only complaint is the pain in the left hip region. The pain does fairly well as long as she is lying in bed. When she tries to move around, the pain gets much worse. X-ray suggested a possible fracture and she subsequently was seen by Dr. Galaviz in Orthopedic Surgery. CT of the pelvis was performed, which showed a combination of mass and hematoma enveloping the left hip and acetabulum and ilium on the left side. There was a pathological fracture of the left ilium and slightly displaced. She also had a fracture in the acetabulum. Dr. Galaviz felt that she was not a candidate for surgery. Now, the emphasis has been on trying to control her pain and get her more active. I have been asked by Dr. Whitfield to see her to discuss whether radiation is an option. She denies any shortness of breath and voices no other complaints. PAST MEDICAL HISTORY: 1. Hypertension. 2. Uterine/ovarian cancer as mentioned above. 3. Status post hysterectomy and partial debulking of the mass. 4. She denies other medical surgical problems. MEDICATIONS: 1. Neurontin. 2. Coreg. 3. Kerman. 4. Robaxin. 5. Morphine. 6. MS Contin. ALLERGIES: PENICILLIN. FAMILY HISTORY: Her mother in her 90s of "old age." Her father in his 70s from diabetes and other complications. There is no family history of malignancy. SOCIAL HISTORY: She has no cigarette or alcohol use. She lives in [place], [place] with her . She is retired. The patient is tearful because her is not able to be at her bedside because of COVID-19 restrictions. REVIEW OF SYSTEMS: A 12-system review of systems is otherwise negative. PHYSICAL EXAMINATION: VITAL SIGNS: Height 5 feet 8 inches, weight 248 pounds, blood pressure is 151/79, pulse is 89, temperature is 99.9, respirations are 18, O2 saturation is 92% on room air. CONSTITUTIONAL: She is alert and oriented and in no apparent distress. She is well developed and well nourished. Karnofsky performance status is 50%. EYES: Pupils are equal, round, and reactive to light. Extraocular movements are intact. ENT: Oral cavity and oropharynx normal without lesion or erythema. Palate elevates symmetrically. Gingiva is intact. NECK: Supple without cervical, or supraclavicular adenopathy. No thyromegaly. Larynx midline. LUNGS: Breathing nonlabored. Clear to auscultation and percussion. CARDIOVASCULAR: Heart, regular rate and rhythm without murmur. She has bilateral pedal edema. LYMPHATIC: No axillary or inguinal adenopathy. ABDOMEN: Obese, soft, nontender, nondistended without mass or hepatosplenomegaly. Liver percusses to normal size. NEUROLOGIC: Cranial nerves 2 through 12 are grossly intact. Motor strength is 5/5 in both upper and lower extremities in all muscle groups tested. Gait was not able to be tested. LABORATORY DATA: CBC revealed a white blood cell count of 5300 with a hemoglobin of 8.4, hematocrit of 26.9, and platelet count of 222,000. Chemistry group showed a potassium of 3.1, creatinine of 1.29 with a GFR of 41. Albumin was 2.8. RADIOLOGIC DATA: CT scan of the pelvis was personally reviewed. Again, she has mass/hematoma that is enveloping the left hip region. She appears to have pathological fracture in the acetabulum and in the ilium with the fracture in the ilium being slightly displaced. She has edema of the left lower extremity. ASSESSMENT: Ms. Viveros is a 74-year-old female with a long history of metastatic uterine/ovarian cancer, who now presents with pathological fracture and disease progression involving the left hip and proximal femur with an essence disease involving the sidewall and enveloping the acetabulum and ball and femoral neck region and even the ilium with pathological fractures. PLAN: I had a long discussion with Ms. Viveros regarding her diagnosis, prognosis, prognostic factors, and treatment options. I have also discussed the case with Dr. Whitfield. I think it would be reasonable to try a course of palliative radiation therapy to the left hip region. This will hopefully treat her cancer and allow her pathological fracture to heal, which in time will hopefully reduce her pain. Because of her pathological fractures, her pain may not respond quickly to the radiation therapy, but I think ultimately she can still have response to the radiation with improvement in the pain with time. I do not think the pathological fractures will heal without the radiation therapy. I have made this recommendation to Ms. Viveros. The logistics of radiation as well as the benefits and risk of treatment were discussed. The simulation and daily treatment procedure were discussed. Side effects would include, but not be limited to skin reaction, fatigue, lower blood counts, nausea, vomiting, diarrhea, and small risk of damage to her intestines or other structures which receive radiation therapy. Dr. Whitfield is going to hold her tyrosine kinase inhibitor while she is on the radiation Ms. Viveros is tentatively agreeable to proceed with radiation therapy. She does wish me to talk to her and we will attempt to do that shortly. We will need to get her pain under better control with medication and hopefully by Tuesday, she will be able to be moved around from the bed and we can transport her over to the cancer center for consideration of simulation. I would plan an approximate 2-week course of treatment. Thank you for this interesting consultation. Job ID: [id number]
[2020-01-05] MEDS: HYDROcodone/Acetaminophen 7.5/325 mg Tablet PO PRN (00:56)
[2020-01-05 05:53] LABS: Anion Gap 12 mmol/L (10-20); BUN (Urea Nitrogen) 25 mg/dL (9.8-20.1); Calc. Creatinine Clearance 88 mL/min (70-130); Calcium 8.1 mg/dL (7.8-10.44); Carbon Dioxide 22 mmol/L (23-31); Chloride 113 mmol/L (98-107); Estimated GFR-MDRD 54; Glucose 102 mg/dL (83-110); Potassium 3.3 mmol/L (3.5-5.1); Sodium 144 mmol/L (136-145)
--- NOTE | 2020-01-05 07:11 | PDOC.FM ---
- Subjective Subjective: Feeling well this morning. She is interested in palliative radiation, however she does not believe she can go home in the condition she is in. She is distraught over discharge planning. - Objective MAR Reviewed: Yes Vital Signs & Weight: Vital Signs (12 hours) Temp Pulse Resp BP Pulse Ox 01/05/20 03:39 98.4 F 74 18 140/57 L 94 L 01/05/20 00:00 98.3 F 84 18 139/69 95 01/04/20 20:00 94 L 01/04/20 19:20 99.2 F 89 18 144/67 H 94 L Weight Admit Weight 112.536 kg Weight 112.536 kg I&O: 01/04/20 01/05/20 01/06/20 06:59 06:59 06:59 Intake Total 900 2850 Output Total 2550 1750 Balance -1650 1100 Result Diagrams: 01/03/20 09:39 01/05/20 05:15 Phys Exam - Physical Examination Constitutional: NAD HEENT: PERRLA, moist MMs Neck: supple, full ROM Respiratory: no wheezing, no rales, no rhonchi, clear to auscultation bilateral Cardiovascular: RRR, no significant murmur Gastrointestinal: soft, non-tender Musculoskeletal: pulses present, edema present Neurological: non-focal, moves all 4 limbs Psychiatric: normal affect, A&O x 3 Skin: no rash, normal turgor Dx/Plan (1) ANIBAL (acute kidney injury) Code(s): N17.9 - ACUTE KIDNEY FAILURE, UNSPECIFIED Status: Acute (2) Uterine cancer Code(s): C55 - MALIGNANT NEOPLASM OF UTERUS, PART UNSPECIFIED Status: Acute (3) HTN (hypertension) Code(s): I10 - ESSENTIAL (PRIMARY) HYPERTENSION Status: Acute (4) Edema Code(s): R60.9 - EDEMA, UNSPECIFIED Status: Acute (5) Hypokalemia Code(s): E87.6 - HYPOKALEMIA Status: Acute - Plan Plan: 74 yo F with PMH metastatic uterine cancer transferred from [place] for dehydration and kidney injury. ANIBAL on CKD3 2/2 hypovolemia, dehydration - Prerenal FeNa. Cr: 2.21 > 2.11 > 1.57 > 1.29 > 1.01 - UA negative for infection-1+ bacteria but neg nitrites, LE. Culture negative. - D/c fluids and encourage po hydration. Left iliac wing fracture - CT shows several fractures in the left bony pelvis. Shows combination of large soft tissue malignant metastatic tumor and traumatic hematoma. - Ortho consulted: Non-surgical. - Rad/Onc consulted: Patient is a candidate for palliative radiation for pain relief. However, she cannot go to SNF or Rehab w/ radiation per conversation with CM. Will discuss w/ CM and patient in regards to d/c plan. At this time, patient is not functional enough for discharge home in my opinion. Nausea/vomiting - antiemetics prn Hypokalemia, hypomagnesemia - 3.3 this morning. Will replace PO. Metastatic uterine cancer - metastasis in abdomen, lung - Oncology, Dr. Whitfield consulted, was due for chemo today, delayed for NV. - has been on Keytruda and tyrosine kinase inhibitor. Lower extremity edema - likely 2/2 chronic venous stasis but will check BNP - monitor strict IOs. - ECHO EF 55-60%. Diastolic dysfunction. Normocytic anemia - stable compared to prior HTN -Will restart home medication (Coreg) Diet: advance as tolerated DVT ppx: Heparin TID Dispo: admit to medical floor, inpatient. Expected LOS >48 hours Code Status: Chem only "no extraordinary measures" no compression no intubation Addendum - Attending - Attending Attestation Date/Time: 01/05/20 1142 I personally evaluated the patient and discussed the management with Dr. Richards I agree with the History, Examination, Assessment and Plan documented above with any addition or exceptions noted below - Patient with pain when she is moving. Afebrile VSS. A/P: 1) L hip fracture- plan for pallative XRT x 2 weeks; continue current meds. 2) N/V-resolved. 3) Metastatic uterine/ovarian cancer - chemo on hold for now. 4) d/c planning - will need rehab or SNF but unable to be accepted while receiving XRT.
[2020-01-05] MEDS ORDERED: Potassium Chloride 20 MEQ TAB PO SCH (08:00)
[2020-01-05] MEDS: Senokot S 8.6-50 MG TAB PO SCH ×2 (09:02→21:00)
[2020-01-05] MEDS: Gabapentin 100 MG CAP PO SCH ×3 (09:02→21:00)
[2020-01-05] MEDS: Carvedilol 25 MG TAB PO SCH ×2 (09:03→21:00)
[2020-01-05] MEDS: Morphine ER 30 MG TAB PO SCH ×2 (09:04→21:00)
[2020-01-05] MEDS: Heparin 5,000 UNITS/ML VIAL SC SCH ×3 (09:05→21:00)
[2020-01-05] MEDS: Morphine 4 MG/ML VIAL SLOW IVP PRN ×3 (12:29→21:03)
[2020-01-05] MEDS: Ondansetron PF 4 MG/2 ML Vial IVP PRN (12:30)
[2020-01-06] MEDS: HYDROcodone/Acetaminophen 7.5/325 mg Tablet PO PRN ×2 (00:46→15:20)
[2020-01-06] MEDS: Morphine 4 MG/ML VIAL SLOW IVP PRN ×2 (05:28→11:16)
[2020-01-06 05:57] LABS: Anion Gap 11 mmol/L (10-20); BUN (Urea Nitrogen) 21 mg/dL (9.8-20.1); Calc. Creatinine Clearance 98 mL/min (70-130); Calcium 8.2 mg/dL (7.8-10.44); Carbon Dioxide 24 mmol/L (23-31); Chloride 109 mmol/L (98-107); Estimated GFR-MDRD 61; Glucose 89 mg/dL (83-110); Potassium 3.7 mmol/L (3.5-5.1); Sodium 140 mmol/L (136-145)
--- NOTE | 2020-01-06 07:08 | PDOC.FM ---
- Subjective Subjective: Doing well this morning. Uncomfortable with movement. - Objective MAR Reviewed: Yes Vital Signs & Weight: Vital Signs (12 hours) Temp Pulse Resp BP Pulse Ox 01/06/20 00:00 99.1 F 82 18 154/69 H 96 01/05/20 19:41 94 L 01/05/20 19:34 98.5 F 94 18 103/67 99 01/05/20 19:26 98.0 F 86 18 168/74 H 93 L Weight Admit Weight 112.536 kg Weight 112.536 kg I&O: 01/05/20 01/06/20 01/07/20 06:59 06:59 06:59 Intake Total 2850 1602 Output Total 1750 1750 Balance 1100 -148 Result Diagrams: 01/03/20 09:39 01/06/20 05:16 Phys Exam - Physical Examination Constitutional: NAD HEENT: moist MMs, sclera anicteric Neck: supple Respiratory: no wheezing, no rales, no rhonchi, clear to auscultation bilateral Cardiovascular: RRR, no significant murmur Gastrointestinal: soft, non-tender Musculoskeletal: edema present Neurological: non-focal, moves all 4 limbs Psychiatric: normal affect, A&O x 3 Skin: no rash, normal turgor Dx/Plan (1) ANIBAL (acute kidney injury) Code(s): N17.9 - ACUTE KIDNEY FAILURE, UNSPECIFIED Status: Acute (2) Uterine cancer Code(s): C55 - MALIGNANT NEOPLASM OF UTERUS, PART UNSPECIFIED Status: Acute (3) HTN (hypertension) Code(s): I10 - ESSENTIAL (PRIMARY) HYPERTENSION Status: Acute (4) Edema Code(s): R60.9 - EDEMA, UNSPECIFIED Status: Acute (5) Hypokalemia Code(s): E87.6 - HYPOKALEMIA Status: Acute - Plan Plan: 74 yo F with PMH metastatic uterine cancer transferred from [place] for dehydration and kidney injury. ANIBAL on CKD3 2/2 hypovolemia, dehydration RESOLVED Left iliac wing fracture - CT shows several fractures in the left bony pelvis. Shows combination of large soft tissue malignant metastatic tumor and traumatic hematoma. - Ortho consulted: Non-surgical. - Rad/Onc consulted: Patient is a candidate for palliative radiation for pain relief. - Patient will need 2 weeks of radiation, she may remain inpatient for the duration of that time in order to be discharged to SNF. At this time she is unable to function independently or with the assistance of her . Nausea/vomiting - antiemetics prn Hypokalemia, hypomagnesemia - 3.7 this morning. Will replace PO. Metastatic uterine cancer - metastasis in abdomen, lung - Oncology, Dr. Whitfield consulted, was due for chemo today, delayed for NV. - Rad/Onc consulted - has been on Keytruda and tyrosine kinase inhibitor. Lower extremity edema - likely 2/2 chronic venous stasis but will check BNP - monitor strict IOs. - ECHO EF 55-60%. Diastolic dysfunction. Normocytic anemia - stable compared to prior HTN -Will restart home medication (Coreg) Diet: advance as tolerated DVT ppx: Heparin TID Dispo: admit to medical floor, inpatient. Expected LOS >48 hours Code Status: Chem only "no extraordinary measures" no compression no intubation Addendum - Attending - Attending Attestation Date/Time: 01/06/20 1545 I personally evaluated the patient and discussed the management with Dr. Richards I agree with the History, Examination, Assessment and Plan documented above with any addition or exceptions noted below - Patient comfortable when not moving. Afebrile VSS. A/P: 1) ANIBAL on CKD3- resolved; IV heplocked. 2) Left iliac wing fracture/ left acetabular fracture - most likely secondary to bony metastasis - plan for palliative XRT to help with pain control and fracture healing. 3) Metastatic uterine cancer - chemo on hold currently. 4) murinary retention- uncertain etiology; possibly secondary to opiates; rivero in place now ; consider voiding trial in next 2-3 days. 5) D/c planning- PT/OT consulted; [facility] most likely need rehab/SNF after completion of XRT. Facilities will not accept while receiving XRT.
[2020-01-06] MEDS: Senokot S 8.6-50 MG TAB PO SCH ×2 (08:35→20:57)
[2020-01-06] MEDS: Morphine ER 30 MG TAB PO SCH ×2 (08:35→20:58)
[2020-01-06] MEDS: Gabapentin 100 MG CAP PO SCH ×3 (08:35→20:58)
[2020-01-06] MEDS: Carvedilol 25 MG TAB PO SCH ×2 (08:53→20:58)
[2020-01-06] MEDS: Heparin 5,000 UNITS/ML VIAL SC SCH ×3 (08:53→20:59)
[2020-01-06] MEDS: Ondansetron PF 4 MG/2 ML Vial IVP PRN (08:55)
[2020-01-06] MEDS: Polyethylene Glycol 3350 17 GM Packet PO SCH (11:16)
[2020-01-07] MEDS: Morphine 4 MG/ML VIAL SLOW IVP PRN ×2 (01:34→05:58)
[2020-01-07] MEDS: HYDROcodone/Acetaminophen 7.5/325 mg Tablet PO PRN (04:31)
[2020-01-07] MEDS: Ondansetron PF 4 MG/2 ML Vial IVP PRN (04:38)
--- NOTE | 2020-01-07 06:27 | PDOC.FM ---
- Subjective Subjective: Patient reports she is not in pain this AM. When her pain comes, it is acute, sharp and to her L hip. She does not feel pain medications wearing off prior to acute sharp pain. Otherwise, she gets nauseous every morning. Took zofran this AM. States her legs "weep"; this started about a month or so ago. - Objective MAR Reviewed: Yes Vital Signs & Weight: Vital Signs (12 hours) Temp Pulse Resp BP Pulse Ox 01/06/20 20:00 98.3 F 86 18 156/65 H 94 L 01/06/20 19:41 94 L Weight Admit Weight 112.536 kg Weight 112.536 kg I&O: 01/05/20 01/06/20 01/07/20 06:59 06:59 06:59 Intake Total 2850 1602 520 Output Total 1750 1750 1100 Balance 1100 -148 -580 Result Diagrams: 01/03/20 09:39 01/07/20 06:07 Phys Exam - Physical Examination Constitutional: NAD Respiratory: no wheezing, clear to auscultation bilateral Cardiovascular: RRR, no significant murmur Gastrointestinal: non-tender, no distention, positive bowel sounds Psychiatric: normal affect, A&O x 3 Deviation from normal: legs wrapped from knee down b/l, draining green purulent fluid posteriorly Dx/Plan (1) ANIBAL (acute kidney injury) Code(s): N17.9 - ACUTE KIDNEY FAILURE, UNSPECIFIED Status: Acute (2) HTN (hypertension) Code(s): I10 - ESSENTIAL (PRIMARY) HYPERTENSION Status: Acute (3) Uterine cancer Code(s): C55 - MALIGNANT NEOPLASM OF UTERUS, PART UNSPECIFIED Status: Acute - Plan Plan: 74 yo F with PMH metastatic uterine cancer transferred from [place] for dehydration and kidney injury. Left iliac wing fracture - CT shows several fractures in the left bony pelvis. Shows combination of large soft tissue malignant metastatic tumor and traumatic hematoma. - Ortho consulted: Non-surgical. - Rad/Onc consulted: Patient is a candidate for palliative radiation for pain relief. - Patient will need 2 weeks of radiation, she may remain inpatient for the duration of that time in order to be discharged to SNF. At this time she is unable to function independently or with the assistance of her . - continue pain mgmt Nausea/vomiting - antiemetics prn, improving. Would like something better to eat. Discussed w/ nurse possibility of ordering outside cheese pizza. Urinary retention - likely 2/2 to opioids. May consider voiding trial as wean opioids. - Warner in place. ANIBAL on CKD3 2/2 hypovolemia, dehydration - resolved Hypokalemia, hypomagnesemia - 3.7 this morning. Will replace PO. Metastatic uterine cancer - metastasis in abdomen, lung - Oncology, Dr. Whitfield consulted, was due for chemo today, delayed for N/V. - Rad/Onc consulted - has been on Keytruda and tyrosine kinase inhibitor. Lower extremity edema with weeping and posterior leg ulcerations. - monitor strict IOs. - ECHO EF 55-60%. Diastolic dysfunction. - wound care consulted. Normocytic anemia - stable compared to prior HTN -Will restart home medication (Coreg) Diet: regular DVT ppx: Heparin TID Dispo: admit to medical floor, inpatient. Expected LOS >48 hours Code Status: Chem only "no extraordinary measures" no compression no intubation Addendum - Attending - Attending Attestation Date/Time: 01/07/20 2812 I personally evaluated the patient and discussed the management with Dr. Finley. I agree with the History, Examination, Assessment and Plan documented above with any addition or exceptions noted below. Patient stable. Going for XRT for bone met resulting in fracture. Continue pain control. Needs improved BP control. Needs placement once XRT complete.
[2020-01-07] MEDS ORDERED: Ketorolac Tromethamine 30 MG/ML VIAL IVP PRN (06:53)
[2020-01-07 07:02] LABS: Anion Gap 13 mmol/L (10-20); BUN (Urea Nitrogen) 18 mg/dL (9.8-20.1); Calc. Creatinine Clearance 107 mL/min (70-130); Carbon Dioxide 22 mmol/L (23-31); Chloride 108 mmol/L (98-107); Estimated GFR-MDRD 67; Glucose 96 mg/dL (83-110); Potassium 3.7 mmol/L (3.5-5.1); Sodium 139 mmol/L (136-145)
[2020-01-07] MEDS: Carvedilol 25 MG TAB PO SCH ×2 (08:24→20:44)
[2020-01-07] MEDS: Dexamethasone 4 MG TAB PO SCH ×2 (08:24→16:55)
[2020-01-07] MEDS: Senokot S 8.6-50 MG TAB PO SCH ×2 (08:24→20:44)
[2020-01-07] MEDS: Morphine ER 30 MG TAB PO SCH (08:25)
[2020-01-07] MEDS: Polyethylene Glycol 3350 17 GM Packet PO SCH (08:26)
[2020-01-07] MEDS: Gabapentin 100 MG CAP PO SCH ×3 (08:26→20:44)
[2020-01-07] MEDS: Heparin 5,000 UNITS/ML VIAL SC SCH ×3 (08:26→20:44)
[2020-01-07] MEDS ORDERED: HYDROcodone/Acetaminophen 10/325 mg Tablet PO PRN (15:40)
--- NOTE | 2020-01-07 16:10 | PDOC.MOPN ---
Interval History: comfortable at this time. - Vital Signs Vital Signs: Vital Signs (12 hours) Temp Pulse Pulse Resp BP BP Pulse Ox 01/07/20 11:41 98.5 F 82 20 169/72 H 92 L 01/07/20 11:35 82 169/72 H 01/07/20 08:00 97.9 F 86 20 165/70 H 94 L Pulse Ox 01/07/20 11:41 01/07/20 11:35 94 L 01/07/20 08:00 Weight Admit Weight 248 lb 1.6 oz Weight 248 lb 1.6 oz - Physical Exam General: No acute distress HEENT: Atraumatic, PERRLA, EOMI, Mucous membr. moist/pink Lungs: Clear to auscultation, Normal air movement Cardiovascular: Regular rate, Normal S1, Normal S2, No murmurs, Gallops, Rubs Abdomen: Normal bowel sounds, Soft, No tenderness, No hepatospenomegaly, No masses Neurological: Normal speech - Labs Result Diagrams: 01/03/20 09:39 01/07/20 06:07 Lab results: Laboratory Results - last 24 hr 01/07/20 06:07: Sodium 139, Potassium 3.7, Chloride 108 H, Carbon Dioxide 22 L, Anion Gap 13, BUN 18, Creatinine 0.83, Estimated GFR (MDRD) 67, Glucose 96, Calcium 8.0 Status: lab reviewed by me A/P - Problem (1) Leg pain, left Current Visit: Yes Code(s): M79.605 - PAIN IN LEFT LEG Status: Acute (2) ANIBAL (acute kidney injury) Current Visit: Yes Code(s): N17.9 - ACUTE KIDNEY FAILURE, UNSPECIFIED Status : Acute (3) Uterine cancer Current Visit: Yes Code(s): C55 - MALIGNANT NEOPLASM OF UTERUS, PART UNSPECIFIED Status: Acute - Plan Plan: patient poorly tolerated movement to radiation despite dex, toradol Family Medicine will adjust pain medication and retry XRT tomorrow
[2020-01-07] MEDS: Ketorolac Tromethamine 30 MG/ML VIAL IVP SCH (16:55)
[2020-01-07] MEDS ORDERED: Ketorolac Tromethamine 15 MG/ML VIAL IVP SCH (18:00)
[2020-01-07] MEDS: Morphine ER 15 MG TAB PO SCH (20:44)
[2020-01-08] MEDS: Ketorolac Tromethamine 30 MG/ML VIAL IVP SCH ×4 (00:17→16:50)
--- NOTE | 2020-01-08 05:30 | PDOC.FM ---
- Subjective Subjective: Patient slept through the night. No prn pain medications requested. Nurse noticed improved pain w/ position. Otherwise, had urge to urinate at voiding trial yesterday. 400 mL out after being clamped (improperly) all day. - Objective MAR Reviewed: Yes Vital Signs & Weight: Vital Signs (12 hours) Temp Pulse Resp BP Pulse Ox 01/07/20 20:00 98.0 F 73 20 162/69 H 97 01/07/20 19:41 97 Weight Admit Weight 112.536 kg Weight 112.536 kg I&O: 01/06/20 01/07/20 01/08/20 06:59 06:59 06:59 Intake Total 1602 520 600 Output Total 1750 1100 850 Balance -819 -359 -392 Result Diagrams: 01/03/20 09:39 01/07/20 06:07 Phys Exam - Physical Examination Constitutional: NAD Respiratory: clear to auscultation bilateral Cardiovascular: RRR Gastrointestinal: soft, non-tender Musculoskeletal: edema present Psychiatric: normal affect, A&O x 3 Deviation from normal: no change to wound dressings from yesterday Dx/Plan (1) ANIBAL (acute kidney injury) Code(s): N17.9 - ACUTE KIDNEY FAILURE, UNSPECIFIED Status: Acute (2) HTN (hypertension) Code(s): I10 - ESSENTIAL (PRIMARY) HYPERTENSION Status: Acute (3) Uterine cancer Code(s): C55 - MALIGNANT NEOPLASM OF UTERUS, PART UNSPECIFIED Status: Acute - Plan Plan: 74 yo F with PMH metastatic uterine cancer transferred from [place] for dehydration and kidney injury. Left iliac wing fracture - Ortho consulted: Non-surgical. - Rad/Onc consulted: Patient is a candidate for palliative radiation for pain relief. - Patient will need 2 weeks of radiation. Limit to therapy is pain control. - continue pain mgmt Nausea/vomiting - improved Urinary retention - d/c rivero. ANIBAL on CKD3 2/2 hypovolemia, dehydration - resolved Hypokalemia, hypomagnesemia - monitor, resolved Metastatic uterine cancer - metastasis in abdomen, lung - Oncology, Dr. Whitfield consulted. appreciate recs - Rad/Onc consulted Lower extremity edema with weeping and posterior leg ulcerations. - monitor strict IOs. - ECHO EF 55-60%. Diastolic dysfunction. - wound care consulted. Normocytic anemia - stable compared to prior HTN -continue coreg. Will add hydrochlorothiazide. Diet: regular DVT ppx: Heparin TID Dispo: admit to medical floor, inpatient. Expected LOS >48 hours Code Status: Chem only "no extraordinary measures" no compression no intubation Addendum - Attending - Attending Attestation Date/Time: 01/08/20 7117 I personally evaluated the patient and discussed the management with Dr. Finley. I agree with the History, Examination, Assessment and Plan documented above with any addition or exceptions noted below. Patient pain is better controlled today. However, she becomes tearful when thinking about the pain associated with radiation therapy and reports that she does not think she wants to go through with it. Her pain is controlled while in bed, and says she is able to get to edge of the bed. Will continue to modulate pain regimen as needed. Will discuss what patient said about radiation therapy with [facility].
[2020-01-08] MEDS: Morphine ER 15 MG TAB PO SCH ×2 (08:09→20:30)
[2020-01-08] MEDS: Gabapentin 100 MG CAP PO SCH ×3 (08:10→20:29)
[2020-01-08] MEDS: Senokot S 8.6-50 MG TAB PO SCH ×2 (08:11→20:30)
[2020-01-08] MEDS: Dexamethasone 4 MG TAB PO SCH ×2 (08:11→16:50)
[2020-01-08] MEDS: Carvedilol 25 MG TAB PO SCH ×2 (08:11→20:28)
[2020-01-08] MEDS: Polyethylene Glycol 3350 17 GM Packet PO SCH (08:11)
[2020-01-08] MEDS: Heparin 5,000 UNITS/ML VIAL SC SCH ×3 (08:12→20:29)
[2020-01-08] MEDS: Hydrochlorothiazide 25 MG TAB PO SCH (10:17)
[2020-01-08] MEDS: HYDROcodone/Acetaminophen 10/325 mg Tablet PO PRN (10:18)
--- NOTE | 2020-01-08 13:14 | PRG ---
DATE OF SERVICE: 01/08/2020 SUBJECTIVE: I visited with Ms. Viveros today. She is a 74-year-old female with a metastatic endometrial/ovarian cancer involving the left pelvic sidewall musculature and enveloping the femur and ilium. She has a pathological fracture in the ilium. We attempted to bring her for radiation yesterday, but because her pain was unbearable, we had to stop before simulation could be accomplished. This was despite giving her pain medication prior to her coming for the radiation appointment. Today, she informs me that the pain is worse. She states that the pain was worsened yesterday by transportation to the radiation department. She tried physical therapy a little while ago, was not able to do much. She did have her pain medication adjusted by the Family Practice [facility]. She remains very tense, and at this point, does not think she can do the radiation markings. She voices no new complaints. OBJECTIVE: VITAL SIGNS: Height 5 feet and 8 inches. Weight 248 pounds. Blood pressure 149/67, pulse is 71, respirations 16, temperature is 97.6, O2 saturation is 97%. CONSTITUTIONAL: She is alert and oriented and in no apparent distress. She does get emotional discussing her present situation. Karnofsky performance status is 40%. Remainder of the physical exam was not performed. ASSESSMENT: Ms. Viveros does have metastatic disease involving the left pelvic sidewall musculature as well as a pathological fracture. Her performance status remains decreased. PLAN: I had a discussion with Ms. Viveros about our options. I still think radiation therapy is the thing that can help her potentially the most. I will continue to work with family practice about adjusting her pain medication. Her MS Contin dose was just increased, and hopefully, this will improve her pain over the next day or 2, such that she is able to initiate radiation therapy. She presently is mostly confined to the bed. Hopefully with working with physical therapy, she will be able to get out of bed and get more active. She states that her goal is to get more active. She has considerable amount of anxiety over her present situation. I will add some Ativan to see if this can improve her anxiety and pain control as well. We will check on her tomorrow and see if she has had improved pain control and may be up to doing the radiation therapy simulation. Job ID: [id number] [facility]
--- NOTE | 2020-01-08 15:53 | PDOC.MOPN ---
Interval History: declined xrt today due to pain with movement. Pain currently controlled. - Vital Signs Vital Signs: Vital Signs (12 hours) Temp Pulse Resp BP BP Pulse Ox 01/08/20 11:37 97.6 F 71 16 149/67 H 97 01/08/20 08:00 97 01/08/20 07:10 97.6 F 62 16 185/73 H 97 Weight Admit Weight 248 lb 1.6 oz Weight 248 lb 1.6 oz - Physical Exam General: Alert, Oriented x3, No acute distress HEENT: Atraumatic, PERRLA, EOMI, Mucous membr. moist/pink Lungs: Clear to auscultation, Normal air movement Cardiovascular: Regular rate, Normal S1, Normal S2, No murmurs, Gallops, Rubs Abdomen: Normal bowel sounds, Soft, No tenderness, No hepatospenomegaly, No masses Extremities: Other (2+ BLE edema, legs wrapped) Neurological: Normal speech - Labs Result Diagrams: 01/03/20 09:39 01/07/20 06:07 Status: lab reviewed by me A/P - Problem (1) Leg pain, left Current Visit: Yes Code(s): M79.605 - PAIN IN LEFT LEG Status: Acute (2) ANIBAL (acute kidney injury) Current Visit: Yes Code(s): N17.9 - ACUTE KIDNEY FAILURE, UNSPECIFIED Status : Acute (3) Uterine cancer Current Visit: Yes Code(s): C55 - MALIGNANT NEOPLASM OF UTERUS, PART UNSPECIFIED Status: Acute - Plan Plan: Adjust pain medications Ativan added for anxiety Will try xrt tomorrow, needs IV meds prior to moving to [facility]] we discussed hospice if unable to complete radiation.
--- NOTE | 2020-01-08 16:55 | PDOC.PALCO ---
Palliative Care Consult - Consult Details Requesting Physician: Dr Finley Reason for Consult: assistance with communication prognosis/disease, complex decision-making - Social History Smoking Status: Never smoker Smoking: no tobacco exposure Alcohol Use: none Drug Use History: none Living Situation: ([place] at home with , no children) - Medications MAR Reviewed: Yes - Allergies Allergies/Adverse Reactions: Allergies Allergy/AdvReac Type Severity Reaction Status Date / Time Penicillins Allergy Verified 11/17/19 00:37 - Subjective Pain minimal at current time, less than 3 on 1-10 scale. Hopeful for radiation to help mitigate pain. - Objective Vital Signs: Vital Signs - Most Recent Temp Pulse Resp BP Pulse Ox 98.5 F 70 18 160/69 H 94 L 01/08/20 16:00 01/08/20 16:00 01/08/20 16:00 01/08/20 16:01/08/20 16:00 - Plan/Recommendations Plan: Lives in [place] in an independent setting with her . Tearful in talking about "What to do". States pain so severe that she is unable to tolerate radiation, discussed to see how her next session is tolerated and we can revisit goal of care at that time. Uncertain of discharge home secondary to limited help as she states her has slightly compromised health status. No children are available to help, she states she has nephews but they have their own families. Concern aside from her pain is lower extremity edema/ weeping. Mrs Viveros discussed hospice if radiation is not effective. She asked questions in relation to services provided and support. *Attempt to optimize pain management for radiation *If successful with radiation transition home with Home Health/PT *If not able to tolerate radiation transition home with hospice. *Spiritual Care consult Significant concern is her ability to transport to and from radiation if she is discharged. She lives in [place] and is uncertain if she will be able to tolerate daily hour drives to and from radiation as well as the toll it will take on her . Palliative Care to continue to follow and offer assistance with disease processes and Goal of Care. Emotional Support and Therapeutic listening. Please also refer to Josiah Palumbo RNpet care technician notes in note section. [75] minutes spent on this encounter with >50% of the time in counseling and coordination of care. Thank you for this very appropriate consult.
[2020-01-08] MEDS: Lorazepam 0.5 MG TAB PO SCH (20:30)
--- NOTE | 2020-01-09 06:26 | PDOC.FM ---
- Subjective Subjective: Pt talked w/ Dr. Dumont yesterday and wants to try radiation if her pain is controlled. Moved in bed and sat up yesterday, but limited in working w/ PT due to pain. Otherwise, she could not void last night so Warner was re-inserted. - Objective MAR Reviewed: Yes Vital Signs & Weight: Vital Signs (12 hours) Temp Pulse Resp BP Pulse Ox 01/08/20 20:28 95 01/08/20 19:36 98.1 F 66 20 165/80 H 95 Weight Admit Weight 112.536 kg Weight 112.536 kg I&O: 01/07/20 01/08/20 01/09/20 06:59 06:59 06:59 Intake Total 322 819 4682 Output Total 1100 1200 800 Balance -580 -350 1170 Result Diagrams: 01/03/20 09:39 01/07/20 06:07 Phys Exam - Physical Examination Constitutional: NAD Respiratory: no wheezing, clear to auscultation bilateral Cardiovascular: RRR Gastrointestinal: soft, non-tender, no distention Musculoskeletal: edema present (unchanged from yesterday) Psychiatric: A&O x 3 Dx/Plan (1) ANIBLA (acute kidney injury) Code(s): N17.9 - ACUTE KIDNEY FAILURE, UNSPECIFIED Status: Acute (2) HTN (hypertension) Code(s): I10 - ESSENTIAL (PRIMARY) HYPERTENSION Status: Acute (3) Uterine cancer Code(s): C55 - MALIGNANT NEOPLASM OF UTERUS, PART UNSPECIFIED Status: Acute - Plan Plan: 74 yo F with PMH metastatic uterine cancer transferred from [place] for dehydration and kidney injury. Left iliac wing fracture - Ortho consulted: Non-surgical. - Rad/Onc consulted: Patient is a candidate for palliative radiation for pain relief. - Patient will need 2 weeks of radiation. Limit to therapy is pain control. - continue pain mgmt. Will schedule Petros during the day to help w/ PT. Urinary retention - Warner reinserted. ANIBAL on CKD3 2/2 hypovolemia, dehydration - resolved Hypokalemia, hypomagnesemia - monitor, resolved Metastatic uterine cancer - metastasis in abdomen, lung - Oncology, Dr. Whitfield consulted. appreciate recs - Rad/Onc consulted Lower extremity edema with weeping and posterior leg ulcerations. - monitor strict IOs. - ECHO EF 55-60%. Diastolic dysfunction. - wound care consulted. Normocytic anemia - stable compared to prior HTN -continue coreg. Will add hydrochlorothiazide. Diet: regular DVT ppx: Heparin TID Dispo: admit to medical floor, inpatient. Expected LOS >48 hours Code Status: Chem only "no extraordinary measures" no compression no intubation Addendum - Attending - Attending Attestation Date/Time: 01/09/20 1111 I personally evaluated the patient and discussed the management with Dr. Finley. I agree with the History, Examination, Assessment and Plan documented above with any addition or exceptions noted below. Patient pain improved, escalating control again today. She will attempt to work with [employer] to start radiation therapy. We have discussed with her multiple times the need to take PRN narcotics if she is in pain so we can best adjust her daily morphine equivalents.
[2020-01-09] MEDS: Morphine ER 15 MG TAB PO SCH ×2 (08:13→20:44)
[2020-01-09] MEDS: Hydrochlorothiazide 25 MG TAB PO SCH (08:18)
[2020-01-09] MEDS: Lorazepam 0.5 MG TAB PO SCH (08:18)
[2020-01-09] MEDS: Gabapentin 100 MG CAP PO SCH ×2 (08:18→15:36)
[2020-01-09] MEDS: Dexamethasone 4 MG TAB PO SCH ×2 (08:18→16:13)
[2020-01-09] MEDS: Senokot S 8.6-50 MG TAB PO SCH ×2 (08:19→20:45)
[2020-01-09] MEDS: Heparin 5,000 UNITS/ML VIAL SC SCH ×3 (08:19→20:46)
[2020-01-09] MEDS: Carvedilol 25 MG TAB PO SCH ×2 (08:19→20:45)
[2020-01-09] MEDS: Polyethylene Glycol 3350 17 GM Packet PO SCH (08:19)
[2020-01-09] MEDS ORDERED: HYDROcodone/Acetaminophen 10/325 mg Tablet PO SCH ×2 (09:00→12:00)
--- NOTE | 2020-01-09 10:04 | PDOC.MOPN ---
Interval History: woke up in pain today. Has left hip pain now. - Vital Signs Vital Signs: Vital Signs (12 hours) Temp Pulse Resp BP Pulse Ox 01/09/20 07:52 97.3 F L 75 17 142/77 H 94 L Weight Admit Weight 248 lb 1.6 oz Weight 248 lb 1.6 oz - Physical Exam General: Alert, Oriented x3, No acute distress HEENT: Atraumatic, PERRLA, EOMI, Mucous membr. moist/pink Lungs: Clear to auscultation, Normal air movement Cardiovascular: Regular rate, Normal S1, Normal S2, No murmurs, Gallops, Rubs Abdomen: Normal bowel sounds, Soft, No tenderness, No hepatospenomegaly, No masses Extremities: Other (BLE edema) Neurological: Normal speech - Labs Result Diagrams: 01/03/20 09:39 01/07/20 06:07 Status: lab reviewed by me A/P - Problem (1) Leg pain, left Current Visit: Yes Code(s): M79.605 - PAIN IN LEFT LEG Status: Acute (2) ANIBAL (acute kidney injury) Current Visit: Yes Code(s): N17.9 - ACUTE KIDNEY FAILURE, UNSPECIFIED Status : Acute (3) Uterine cancer Current Visit: Yes Code(s): C55 - MALIGNANT NEOPLASM OF UTERUS, PART UNSPECIFIED Status: Acute - Plan Plan: increase MS contin Celia scheduled continue antianxiety, steroids, heating pad bowel regimen Hopefully, will be allowed to stay at bedside XRT tomorrow
[2020-01-09] MEDS: Morphine 4 MG/ML VIAL SLOW IVP PRN (10:46)
[2020-01-09] MEDS: HYDROcodone/Acetaminophen 10/325 mg Tablet PO PRN ×2 (12:06→16:13)
--- NOTE | 2020-01-09 14:47 | PDOC.PALPN ---
Palliative Progress Note - Subjective Tearful, fearful with anticipatory increase in pain with radiation. - Objective Vital Signs: Vital Signs - Most Recent Temp Pulse Resp BP Pulse Ox 97.7 F 68 17 158/73 H 95 01/09/20 11:00 01/09/20 13:34 01/09/20 11:00 01/09/20 13:34 01/09/20 13:34 - Physical Exam Constitutional: ill appearing, mild distress HEENT: moist MMs, sclera anicteric Respiratory: no wheezing, unlabored breathing Cardiovascular: RRR Gastrointestinal: soft, non-tender, positive bowel sounds Genitourinary: rivero catheter, urinary retention Musculoskeletal: edema present, diffuse muscle atrophy Neurology: moves all 4 limbs Skin: cap refill <2 seconds, fragile Psychiatric: A&O x 3, depressed Deviation from normal: anxious - Assessment (1) Chronic pain due to malignant neoplastic disease Code(s): G89.3 - NEOPLASM RELATED PAIN (ACUTE) (CHRONIC) Current Visit: Yes Status: Acute (2) Palliative care encounter Code(s): Z51.5 - ENCOUNTER FOR PALLIATIVE CARE Current Visit: Yes Status: Acute (3) ANIBAL (acute kidney injury) Code(s): N17.9 - ACUTE KIDNEY FAILURE, UNSPECIFIED Current Visit: Yes Status : Acute (4) Edema Code(s): R60.9 - EDEMA, UNSPECIFIED Current Visit: Yes Status: Acute (5) Uterine cancer Code(s): C55 - MALIGNANT NEOPLASM OF UTERUS, PART UNSPECIFIED Current Visit: Yes Status: Acute - Plan Plan: Continues with anxiety related to anticipatory increase in pain and intolerance of radiation. Pain continues to be present. Tearful with overall prognosis and decisions: radiation not being able to be tolerated, if she is able to tolerate radiation concern over ability to commute back and forth between radiation and her home in [place]. Add Biophosphate to mitigate bone pain Increase Gabapentin Transition from short acting benzo to long acting Continue with emotional support and therapeutic listening. Spiritual Care involved Revisit Goal of Care after radiation and if successfully tolerated Communicated with Dr Finley [40] minutes spent on this encounter with >50% of the time in counseling and coordination of care.
[2020-01-09] MEDS ORDERED: Zoledronic Acid 4 MG in Sodium Chloride 0.9% 100 ML IVPB SCH (16:30)
[2020-01-09] MEDS: Gabapentin 300 MG CAP PO SCH (20:45)
[2020-01-09] MEDS: clonazePAM 0.5 MG TAB PO SCH (20:45)
[2020-01-10] MEDS: HYDROcodone/Acetaminophen 10/325 mg Tablet PO PRN ×4 (03:02→21:15)
--- NOTE | 2020-01-10 06:28 | PDOC.FM ---
- Subjective Subjective: Pt has continued to have high BPs. She sat to edge of bed yesterday w/ PT. Declined to stand. Reports her pain is well controlled and has no pain in her legs. Reports her pain is better and took [place] 60mg prn. Palliative gave clonazepam 0.5 mg BID for anxiety and increased gabapentin. - Objective MAR Reviewed: Yes Vital Signs & Weight: Vital Signs (12 hours) Temp Pulse Resp BP Pulse Ox 01/10/20 04:45 98.0 F 67 18 167/67 H 94 L 01/09/20 20:00 97.9 F 67 18 170/73 H 93 L Weight Admit Weight 112.536 kg Weight 112.536 kg I&O: 01/08/20 01/09/20 01/10/20 06:59 06:59 06:59 Intake Total 850 1970 340 Output Total 5795 010 1262 Balance -350 1170 -1280 Result Diagrams: 01/03/20 09:39 01/07/20 06:07 Phys Exam - Physical Examination Constitutional: NAD (eating greenlandic toast) Respiratory: no wheezing Gastrointestinal: no distention Musculoskeletal: edema present (bilaterally in LE. ) Psychiatric: A&O x 3 Deviation from normal: legs wrapped, dressings not disturbed. Dx/Plan (1) ANIBAL (acute kidney injury) Code(s): N17.9 - ACUTE KIDNEY FAILURE, UNSPECIFIED Status: Acute (2) HTN (hypertension) Code(s): I10 - ESSENTIAL (PRIMARY) HYPERTENSION Status: Acute (3) Uterine cancer Code(s): C55 - MALIGNANT NEOPLASM OF UTERUS, PART UNSPECIFIED Status: Acute - Plan Plan: 74 yo F with PMH metastatic uterine cancer transferred from [place] for dehydration and kidney injury. Left iliac wing fracture - Ortho consulted: Non-surgical. - Rad/Onc consulted: Patient is a candidate for palliative radiation for pain relief. - continue pain mgmt. - Plan is to attempt radiation simulation today. If patient cannot tolerate, will talk to patient about hospice. Urinary retention - Warner in place. Voiding trial unsuccessful. ANIBAL on CKD3 2/2 hypovolemia, dehydration - resolved Hypokalemia, hypomagnesemia - monitor, resolved Metastatic uterine cancer - metastasis in abdomen, lung - Oncology, Dr. Whitfield consulted. appreciate recs - Rad/Onc consulted Lower extremity edema with weeping and posterior leg ulcerations. - monitor strict IOs. - wound care consulted. Normocytic anemia - stable compared to prior HTN - continue coreg. - added HCTZ. Will consider increasing HCTZ. Diet: regular DVT ppx: Heparin TID Dispo: admit to medical floor, inpatient. Expected LOS >48 hours Code Status: Chem only "no extraordinary measures" no compression no intubation Addendum - Attending - Attending Attestation Date/Time: 01/10/20 7818 I personally evaluated the patient and discussed the management with Dr. Finley. I agree with the History, Examination, Assessment and Plan documented above with any addition or exceptions noted below. Patient overall stable. Working on improving pain control. She has opted to pursue hospice services as opposed to radiation therapy. Will work on that set up today.
[2020-01-10] MEDS: Polyethylene Glycol 3350 17 GM Packet PO SCH (08:30)
[2020-01-10] MEDS: Hydrochlorothiazide 25 MG TAB PO SCH (08:30)
[2020-01-10] MEDS: clonazePAM 0.5 MG TAB PO SCH ×2 (08:31→21:03)
[2020-01-10] MEDS: Gabapentin 300 MG CAP PO SCH ×2 (08:31→21:03)
[2020-01-10] MEDS: Morphine ER 15 MG TAB PO SCH (08:32)
[2020-01-10] MEDS: Heparin 5,000 UNITS/ML VIAL SC SCH ×3 (08:33→21:03)
[2020-01-10] MEDS: Dexamethasone 4 MG TAB PO SCH ×2 (08:33→16:22)
[2020-01-10] MEDS: Senokot S 8.6-50 MG TAB PO SCH ×2 (08:33→21:03)
[2020-01-10] MEDS: Carvedilol 25 MG TAB PO SCH ×2 (08:34→21:03)
--- NOTE | 2020-01-10 09:22 | PRG ---
DATE OF SERVICE: 01/10/2020 SUBJECTIVE: I visited with Ms. Viveros this morning. Her pain is doing a little better, although still worse with movement. She has no new complaints. She still does not feel that she can be transported for radiation. She states she was able to sit on the side of the bed yesterday, but really has not gotten up and gotten around. OBJECTIVE: VITAL SIGNS: Height 5 feet 8 inches, weight 248 pounds. Blood pressure 167/67, pulse is 67, respirations are 18, temperature 98, and O2 saturation is 94% on room air. GENERAL: She is alert and oriented and in no apparent distress. Karnofsky performance status remains 40%. Remainder of physical exam was not performed. 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 I was able to review her last CT scan. She also has metastatic disease to the lung, which is enlarging. PLAN: I have discussed the case with Dr. Whitfield and with her primary care team. I had a long discussion today with Ms. Viveros. She still does not feel that she can try doing the radiation therapy. She is concerned that radiation may make her worse. We had a long discussion about the goals of radiation and our goals and her cancer care. I again explained to her that her cancer is not curable, but the hope is to improve her quality of life and improve her pain control. We discussed options. One option will be to attempt to do the radiation therapy today, and if she is not able to be transported, then we know that she is not going to tolerate doing radiation therapy. However, she does not feel up to doing radiation therapy and does feel that transporting her will make her worse. We then discussed her other options. One option would be for her to continue her recent systemic therapy that Dr. Whitfield started her on. I explained that while this has a small chance of helping, this may not help either. For that matter, radiation may not make her that much better either, although it has the best chance of helping with things. The last option that we discussed was that of hospice care. I explained that the goal of hospice would be to maximize her quality of life and do end-of-life care. She is favoring the supportive care/hospice care route at this time. She is going to discuss this with her . If she changes her mind, we can reconsider radiation therapy. I will communicate this with the primary care team. Please let me know if she changes her mind about possible radiation therapy. Job ID: [id number]
--- NOTE | 2020-01-10 11:27 | PDOC.MOPN ---
Interval History: pain controlled today. - Vital Signs Vital Signs: Vital Signs (12 hours) Temp Pulse Resp BP Pulse Ox 01/10/20 07:46 94 L 01/10/20 04:45 98.0 F 67 18 167/67 H 94 L Weight Admit Weight 248 lb 1.6 oz Weight 248 lb 1.6 oz - Physical Exam General: Alert, Oriented x3, No acute distress HEENT: Atraumatic, PERRLA, EOMI, Mucous membr. moist/pink Lungs: Clear to auscultation, Normal air movement Cardiovascular: Regular rate, Normal S1, Normal S2, No murmurs, Gallops, Rubs Abdomen: Other Extremities: Other (BLE edema) Neurological: Normal speech Psych/Mental Status: Mental status NL - Labs Result Diagrams: 01/03/20 09:39 01/07/20 06:07 Status: lab reviewed by me A/P - Problem (1) Leg pain, left Current Visit: Yes Code(s): M79.605 - PAIN IN LEFT LEG Status: Acute (2) ANIBAL (acute kidney injury) Current Visit: Yes Code(s): N17.9 - ACUTE KIDNEY FAILURE, UNSPECIFIED Status : Acute (3) Uterine cancer Current Visit: Yes Code(s): C55 - MALIGNANT NEOPLASM OF UTERUS, PART UNSPECIFIED Status: Acute - Plan Plan: Long discussion with patient regarding XRT, treatment, and hospice She does not want to do XRT. She has hope that she can return to our clinic for further [place] However, she understands that realistically this will likely not happen Recommended and she agrees to go home on hospice for pain control and quality of life She wishes to continue PT at home. If she is able to walk again and feels she can resume, she will let us know. Discussed with Dr. norris and Dr. Dumont.
--- NOTE | 2020-01-10 11:42 | PDOC.FMACP ---
Advance Care Planning - Problem (1) Leg pain, left Status: Acute Code(s): M79.605 - PAIN IN LEFT LEG (2) ANIBAL (acute kidney injury) Status: Acute Code(s): N17.9 - ACUTE KIDNEY FAILURE, UNSPECIFIED (3) Uterine cancer Status: Acute Code(s): C55 - MALIGNANT NEOPLASM OF UTERUS, PART UNSPECIFIED - Note Participants: patient, family Summary: Advanced Care Planning was discussed. The diagnosis, prognosis and goals of care were discussed. Appropriate forms and documentation to accomplish the goals of care were discussed. All questions were answered. The Palliative Care Team will be engaged to assist with completion of any outstanding forms that are needed. Time Spent (mins): 30 (long conversation about end of life wishes. Plan to focus on pain control and increasing mobility if possible. She would like to go home to be with family.)
--- NOTE | 2020-01-10 15:48 | EKG ---
Test Reason : Blood Pressure : / mmHG Vent. Rate : 081 BPM Atrial Rate : 081 BPM P-R Int : 146 ms QRS Dur : 082 ms QT Int : 374 ms P-R-T Axes : 067 -08 038 degrees QTc Int : 434 ms Normal sinus rhythm Possible Anterior infarct , age undetermined Abnormal ECG Confirmed by JOSELYN HOLLIS DO ([id number]), editor at large [employer]IM[employer] HAGER ([id number] on 01/10/2020 3:47:35 PM Referred By: Confirmed By:JOSELYN HOLLIS DO
--- NOTE | 2020-01-10 16:29 | PDOC.PALPN ---
Palliative Progress Note - Subjective Awake, alert. Continues with chronic pain. - Objective Vital Signs: Vital Signs - Most Recent Temp Pulse Resp BP Pulse Ox 97.8 F 69 20 177/81 H 96 01/10/20 12:00 01/10/20 12:00 01/10/20 12:00 01/10/20 12:00 01/10/20 12:00 - Physical Exam Constitutional: ill appearing HEENT: moist MMs, sclera anicteric, poor dentition Respiratory: no wheezing, unlabored breathing Cardiovascular: RRR Gastrointestinal: soft, non-tender Genitourinary: rivero catheter Musculoskeletal: edema present, diffuse muscle atrophy Neurology: moves all 4 limbs Skin: cap refill <2 seconds, fragile Psychiatric: A&O x 3 - Assessment (1) Chronic pain due to malignant neoplastic disease Code(s): G89.3 - NEOPLASM RELATED PAIN (ACUTE) (CHRONIC) Current Visit: Yes Status: Acute (2) Palliative care encounter Code(s): Z51.5 - ENCOUNTER FOR PALLIATIVE CARE Current Visit: Yes Status: Acute (3) ANIBAL (acute kidney injury) Code(s): N17.9 - ACUTE KIDNEY FAILURE, UNSPECIFIED Current Visit: Yes Status : Acute (4) Edema Code(s): R60.9 - EDEMA, UNSPECIFIED Current Visit: Yes Status: Acute (5) Uterine cancer Code(s): C55 - MALIGNANT NEOPLASM OF UTERUS, PART UNSPECIFIED Current Visit: Yes Status: Acute - Plan Plan: Lengthy conversation in relation to Goal of Care. Several questions concerning transition to hospice and if she could still have radiation. Discussed Comfort measures under hospice and no treatment such as radiation, chemo, or other treatment. Concern in home being "ready" for her to come home with hospice. Revisited Resuscitation status, will complete appropriate forms when her comes tomorrow and transition to DNAR and she will sign an OOHDNAR. Provided a choice sheet for hospice companies and has requested an information visit 01/11/2020 with she and her with [facility]. Communicated with Moira and she will forward allscripts 01/11/2020. Goal of care is to return to the home setting, be pain free, gain strength and "cook". Communicated with staff and Patient [60] minutes spent on this encounter with >50% of the time in counseling and coordination of care. - ROS Constitutional: alert, weakness ENT: other (denies difficulity swallowing) Respiratory: other (denies shortness of breath) Cardiology: other (denies chest pain or palpitations) Gastrointestinal: other (Denies nausea, vomiting) Genitourinary: retention Musculoskeletal: arthritis/arthralgias, leg pain Psychological: anxiety
[2020-01-10] MEDS: fentaNYL 50 mcg/hour Patch TD SCH (21:07)
[2020-01-11] MEDS: Gabapentin 300 MG CAP PO SCH ×4 (00:39→20:32)
[2020-01-11 05:58] LABS: Anion Gap 14 mmol/L (10-20); BUN (Urea Nitrogen) 31 mg/dL (9.8-20.1); Calc. Creatinine Clearance 94 mL/min (70-130); Calcium 7.7 mg/dL (7.8-10.44); Carbon Dioxide 27 mmol/L (23-31); Chloride 99 mmol/L (98-107); Estimated GFR-MDRD 58; Glucose 140 mg/dL (83-110); Potassium 4.6 mmol/L (3.5-5.1); Sodium 135 mmol/L (136-145)
--- NOTE | 2020-01-11 06:46 | PDOC.FM ---
- Subjective Subjective: Patient reports pain well controlled and that she stood up with PT yesterday. Awaiting hospice and OOH DNAR signed. - Objective MAR Reviewed: Yes Vital Signs & Weight: Vital Signs (12 hours) Temp Pulse Resp BP Pulse Ox 01/10/20 20:00 97 01/10/20 19:47 97.5 F L 62 18 152/83 H 97 Weight Admit Weight 112.536 kg Weight 112.536 kg I&O: 01/09/20 01/10/20 01/11/20 06:59 06:59 06:59 Intake Total 1970 340 720 Output Total 800 1620 3900 Balance 1170 1280 -3180 Result Diagrams: 01/03/20 09:39 01/11/20 05:22 Phys Exam - Physical Examination Constitutional: NAD Respiratory: no wheezing, clear to auscultation bilateral Cardiovascular: RRR Musculoskeletal: edema present (unchanged from previous) Psychiatric: A&O x 3 Deviation from normal: tearful this morning Dx/Plan (1) ANIBAL (acute kidney injury) Code(s): N17.9 - ACUTE KIDNEY FAILURE, UNSPECIFIED Status: Acute (2) HTN (hypertension) Code(s): I10 - ESSENTIAL (PRIMARY) HYPERTENSION Status: Acute (3) Uterine cancer Code(s): C55 - MALIGNANT NEOPLASM OF UTERUS, PART UNSPECIFIED Status: Acute - Plan Plan: 74 yo F with PMH metastatic uterine cancer transferred from [place] for dehydration and kidney injury. Left iliac wing fracture - Ortho consulted: Non-surgical. - Rad/Onc consulted: Patient is a candidate for palliative radiation for pain relief. However, pt would like to pursue hospice at this time. She is to let Dr. Dumont if she feels up to pursuing radiation in the future. - Hospice acceptance pending. Urinary retention Constipation - Warner in place. Voiding trial unsuccessful. - likely 2/2 to opioid usage. Pt has not complained of abdominal pain. Metastatic uterine cancer - metastasis in abdomen, lung - Oncology, Dr. Whitfield consulted. appreciate recs - Rad/Onc consulted Lower extremity edema with weeping and posterior leg ulcerations. - monitor strict IOs. - wound care consulted. Likely will need outpatient wound care. Normocytic anemia - stable compared to prior HTN - continue coreg and HCTZ. Diet: regular DVT ppx: Heparin TID Dispo: admit to medical floor, inpatient. Expected LOS >48 hours. Pending hospice acceptance. F/U w/ CM today. plan for home w/ home hospice. Code Status: DNR Addendum - Attending - Attending Attestation Date/Time: 01/11/20 5760 I personally evaluated the patient and discussed the management with Dr. Finley. I agree with the History, Examination, Assessment and Plan documented above with any addition or exceptions noted below. Patient with improved pain control. Continue to modulate as needed. Hospice consult today.
[2020-01-11] MEDS: Hydrochlorothiazide 25 MG TAB PO SCH (08:07)
[2020-01-11] MEDS: HYDROcodone/Acetaminophen 10/325 mg Tablet PO PRN ×2 (08:08→14:34)
[2020-01-11] MEDS: Senokot S 8.6-50 MG TAB PO SCH ×2 (08:08→20:32)
[2020-01-11] MEDS: clonazePAM 0.5 MG TAB PO SCH ×2 (08:08→20:32)
[2020-01-11] MEDS: Heparin 5,000 UNITS/ML VIAL SC SCH ×3 (08:09→20:32)
[2020-01-11] MEDS: Carvedilol 25 MG TAB PO SCH ×2 (08:09→20:31)
[2020-01-11] MEDS: Dexamethasone 4 MG TAB PO SCH ×2 (08:09→17:51)
[2020-01-11] MEDS: Polyethylene Glycol 3350 17 GM Packet PO SCH (08:09)
[2020-01-11] MEDS ORDERED: Calcium Chloride 1 GM/10 ML Abboject SYRINGE IVP SCH (09:00)
[2020-01-11] MEDS ORDERED: Calcium Carbonate 500 MG ChewTAB PO SCH ×2 (09:50→10:15)
[2020-01-11] MEDS: Calcium Carbonate 500 MG ChewTAB PO SCH (20:31)
--- NOTE | 2020-01-12 05:40 | PDOC.FM ---
- Subjective Subjective: Pt sleeping comfortably this AM. Refused pain meds prior to PT yesterday; declined to stand. Sat at edge of bed for 15 minutes. Per CM, pt and to choose hospice agency this AM. - Objective MAR Reviewed: Yes Vital Signs & Weight: Vital Signs (12 hours) Temp Pulse Resp BP Pulse Ox 01/11/20 20:00 96 01/11/20 19:48 97.8 F 72 18 152/66 H 96 Weight Admit Weight 112.536 kg Weight 112.536 kg I&O: 01/10/20 01/11/20 01/12/20 06:59 06:59 06:59 Intake Total 340 720 Output Total 1620 3900 2700 Balance -1280 -3180 -2700 Result Diagrams: 01/03/20 09:39 01/11/20 05:22 Phys Exam - Physical Examination Constitutional: NAD (sleeping) Resp: no acute respiratory distress, on room air. CV: appears well perfused, good color Gastrointestinal: no distention Dx/Plan (1) ANIBAL (acute kidney injury) Code(s): N17.9 - ACUTE KIDNEY FAILURE, UNSPECIFIED Status: Acute (2) HTN (hypertension) Code(s): I10 - ESSENTIAL (PRIMARY) HYPERTENSION Status: Acute (3) Uterine cancer Code(s): C55 - MALIGNANT NEOPLASM OF UTERUS, PART UNSPECIFIED Status: Acute - Plan Plan: 74 yo F with PMH metastatic uterine cancer transferred from [place] for dehydration and kidney injury: Left iliac wing fracture 2/2 metastatic cancer - Ortho consulted: Non-surgical. - Rad/Onc consulted. Pt not tolerating movement for radiation. - Hospice acceptance pending. - Palliative consult for family support placed. Urinary retention Constipation - Rivero in place. May consider another voiding trial prior to d/c, or d/c w/ rivero and attempt to remove as outpatient - likely 2/2 to opioid usage. Pt has not complained of abdominal pain. Metastatic uterine cancer - metastasis in abdomen, lung - Oncology, Dr. Whitfield consulted. appreciate recs - Rad/Onc consulted Lower extremity edema with weeping and posterior leg ulcerations. - monitor strict IOs. - wound care consulted. Likely will need outpatient wound care. - pain in legs is improving Normocytic anemia - stable HTN - continue coreg and HCTZ. Improved. - Recommend adequate hydration when going home on HCTZ. Diet: regular DVT ppx: Heparin TID Dispo: admit to medical floor, inpatient. Expected LOS >48 hours. Pending hospice acceptance. F/U w/ CM today. Plan for home w/ home hospice. Code Status: Chem only. OOHDNR pending. Addendum - Attending - Attending Attestation Date/Time: 01/12/20 3880 I personally evaluated the patient and discussed the management with Dr. Finley. I agree with the History, Examination, Assessment and Plan documented above with any addition or exceptions noted below. Patient stable on current pain control. She is to choose hospice agency today and transition to those services upon discharge.
[2020-01-12] MEDS: Morphine 4 MG/ML VIAL SLOW IVP PRN (07:36)
[2020-01-12] MEDS: Senokot S 8.6-50 MG TAB PO SCH ×2 (08:38→21:00)
[2020-01-12] MEDS: Polyethylene Glycol 3350 17 GM Packet PO SCH (08:38)
[2020-01-12] MEDS: Hydrochlorothiazide 25 MG TAB PO SCH (08:38)
[2020-01-12] MEDS: Calcium Carbonate 500 MG ChewTAB PO SCH ×2 (08:38→20:59)
[2020-01-12] MEDS: Heparin 5,000 UNITS/ML VIAL SC SCH ×3 (08:39→21:00)
[2020-01-12] MEDS: Dexamethasone 4 MG TAB PO SCH ×2 (08:39→17:05)
[2020-01-12] MEDS: clonazePAM 0.5 MG TAB PO SCH ×2 (08:39→21:00)
[2020-01-12] MEDS: Carvedilol 25 MG TAB PO SCH ×2 (08:39→21:00)
[2020-01-12] MEDS: Gabapentin 300 MG CAP PO SCH ×3 (08:39→20:59)
[2020-01-12] MEDS: HYDROcodone/Acetaminophen 10/325 mg Tablet PO PRN ×2 (14:40→21:04)
[2020-01-13] MEDS: HYDROcodone/Acetaminophen 10/325 mg Tablet PO PRN ×2 (03:43→10:59)
--- NOTE | 2020-01-13 06:29 | PDOC.FM ---
- Subjective Subjective: Pt doing well this AM. Said her was working on talking to [facility] yesterday. It does not seem they have made a choice on hospice. RN concerned w/ thick opaque urine sediment in Rivero. Pt denies abdominal pain and other symptoms. States her pain is "okay," and that is comes and goes. - Objective MAR Reviewed: Yes Vital Signs & Weight: Vital Signs (12 hours) Temp Pulse Resp BP Pulse Ox 01/12/20 19:50 97.8 F 72 18 163/80 H 96 01/12/20 19:41 96 Weight Admit Weight 112.536 kg Weight 112.536 kg I&O: 01/11/20 01/12/20 01/13/20 06:59 06:59 06:59 Intake Total 720 1020 Output Total 3900 3250 4300 Balance -3180 -3250 -3280 Result Diagrams: 01/03/20 09:39 01/11/20 05:22 Phys Exam - Physical Examination Constitutional: NAD Respiratory: no wheezing, clear to auscultation bilateral Cardiovascular: RRR Gastrointestinal: soft, non-tender, no distention Psychiatric: normal affect, A&O x 3 Dx/Plan (1) ANIBAL (acute kidney injury) Code(s): N17.9 - ACUTE KIDNEY FAILURE, UNSPECIFIED Status: Acute (2) HTN (hypertension) Code(s): I10 - ESSENTIAL (PRIMARY) HYPERTENSION Status: Acute (3) Uterine cancer Code(s): C55 - MALIGNANT NEOPLASM OF UTERUS, PART UNSPECIFIED Status: Acute - Plan Plan: 74 yo F with PMH metastatic uterine cancer transferred from [place] for dehydration and kidney injury: Left iliac wing fracture 2/2 metastatic cancer - Ortho consulted: Non-surgical. - Rad/Onc consulted. Pt not tolerating movement for radiation. - Hospice acceptance pending. - Palliative consult for family support placed. Urinary retention Constipation - Rivero in place. Likely d/c w/ rivero and may attempt removal/urologist consult outpatient. - likely 2/2 to opioid usage. Pt has not complained of abdominal pain. Metastatic uterine cancer - metastasis in abdomen, lung - Oncology, Dr. Whitfield consulted. appreciate recs - Rad/Onc consulted Lower extremity edema with weeping and posterior leg ulcerations. - monitor strict IOs. - wound care consulted. Likely will need outpatient wound care. - pain in legs is improving Normocytic anemia - stable HTN - continue coreg and HCTZ. Improved. - Recommend adequate hydration when going home on HCTZ. Diet: regular DVT ppx: Heparin TID Dispo: admit to medical floor, inpatient. Expected LOS >48 hours. Pending hospice acceptance. F/U w/ CM today. Plan for home w/ home hospice. Code Status: Chem only. OOHDNR pending. Addendum - Attending - Attending Attestation Date/Time: 01/13/20 7150 I personally evaluated the patient and discussed the management with Dr. Finley. I agree with the History, Examination, Assessment and Plan documented above with any addition or exceptions noted below. Patient here with malaise and pain 2/2 metastatic cancer. She has been doing better now that her pain is better controlled. She had pathologic fracture of hip that we were attempting Radiation therapy for, but she could not tolerate 2/ 2 pain. She and her have opted for hospice services. We are working on that set up. Her pain is overall well controlled with Fentanyl TD as well as Stover for breakthrough. She has been refusing to work with PT due to pain though so that has made it difficult to titrate pain meds to her comfort level.
[2020-01-13] MEDS: Morphine 4 MG/ML VIAL SLOW IVP PRN ×2 (08:06→20:41)
[2020-01-13] MEDS: Dexamethasone 4 MG TAB PO SCH ×2 (08:10→16:49)
[2020-01-13] MEDS: Calcium Carbonate 500 MG ChewTAB PO SCH ×2 (08:10→20:33)
[2020-01-13] MEDS: Gabapentin 300 MG CAP PO SCH ×3 (08:11→20:34)
[2020-01-13] MEDS: Carvedilol 25 MG TAB PO SCH ×2 (08:11→20:35)
[2020-01-13] MEDS: clonazePAM 0.5 MG TAB PO SCH ×2 (08:11→20:34)
[2020-01-13] MEDS: Heparin 5,000 UNITS/ML VIAL SC SCH ×3 (08:11→20:34)
[2020-01-13] MEDS: Hydrochlorothiazide 25 MG TAB PO SCH (08:11)
[2020-01-13] MEDS: Senokot S 8.6-50 MG TAB PO SCH ×2 (08:11→20:36)
[2020-01-13] MEDS: Polyethylene Glycol 3350 17 GM Packet PO SCH (08:12)
[2020-01-13] MEDS: fentaNYL 50 mcg/hour Patch TD SCH (20:32)
[2020-01-14] MEDS: HYDROcodone/Acetaminophen 10/325 mg Tablet PO PRN ×3 (00:07→20:33)
[2020-01-14] MEDS: Morphine 4 MG/ML VIAL SLOW IVP PRN ×3 (06:35→18:35)
--- NOTE | 2020-01-14 08:16 | PDOC.FM ---
- Subjective Subjective: Tearful and slightly disoriented on exam this AM. Says she just feels anxious and "the nurses scare her." Easily redirected & calmed with reassurance. Also reported persistent left hip pain. Did tolerate some PO this AM. Still no BM. - Objective MAR Reviewed: Yes Vital Signs & Weight: Vital Signs (12 hours) Temp Pulse Resp BP Pulse Ox 01/14/20 07:55 98.7 F 79 17 155/79 H 95 Weight Admit Weight 112.536 kg Weight 112.536 kg I&O: 01/13/20 01/14/20 01/15/20 06:59 06:59 06:59 Intake Total 1020 1400 350 Output Total 4300 1800 950 Balance -9695 -999 -600 Result Diagrams: 01/03/20 09:39 01/11/20 05:22 Phys Exam - Physical Examination Constitutional: NAD HEENT: moist MMs Neck: supple, full ROM Respiratory: no wheezing, no rales, no rhonchi, clear to auscultation bilateral Cardiovascular: RRR, no significant murmur Gastrointestinal: soft, non-tender, no distention, positive bowel sounds Neurological: non-focal, moves all 4 limbs Psychiatric: normal affect Deviation from normal: oriented to person and place but not date Skin: no rash, normal turgor Dx/Plan (1) ANIBAL (acute kidney injury) Code(s): N17.9 - ACUTE KIDNEY FAILURE, UNSPECIFIED Status: Acute (2) Chronic pain due to malignant neoplastic disease Code(s): G89.3 - NEOPLASM RELATED PAIN (ACUTE) (CHRONIC) Status: Acute (3) HTN (hypertension) Code(s): I10 - ESSENTIAL (PRIMARY) HYPERTENSION Status: Acute (4) Leg pain, left Code(s): M79.605 - PAIN IN LEFT LEG Status: Acute (5) Palliative care encounter Code(s): Z51.5 - ENCOUNTER FOR PALLIATIVE CARE Status: Acute (6) Uterine cancer Code(s): C55 - MALIGNANT NEOPLASM OF UTERUS, PART UNSPECIFIED Status: Acute - Plan Plan: 74 yo F with PMH metastatic uterine cancer transferred from [place] for dehydration and kidney injury: Left iliac wing fracture 2/2 metastatic cancer - Ortho consulted: Non-surgical. - Rad/Onc consulted. Pt not tolerating movement for radiation. - Hospice acceptance pending. - Palliative on board for family support placed. ANIBAL on CKDIII, resolved - Renal fxn @ baseline with last BMP & adequate UO with rivero in place. Urinary retention & Constipation - Rivero in place. Likely d/c w/ rivero and may attempt removal/urologist consult outpatient. - likely iatrogenic 2/2 to opioid usage. Pt still has not complained of abdominal pain. Metastatic uterine cancer - metastasis in abdomen, lung - Oncology, Dr. Whitfield consulted. appreciate recs - Rad/Onc consulted Lower extremity edema with weeping and posterior leg ulcerations, improved - monitor strict IOs. - wound care on board. Will continue wound care with hospice. Normocytic anemia - stable HTN - continue coreg and HCTZ. Improved. - Recommend adequate hydration when going home on HCTZ. Diet: regular DVT ppx: Heparin TID Dispo: F/u w/ CM today. Plan for home w/ home hospice. Code Status: DNAR. Addendum - Attending - Attending Attestation Date/Time: 01/14/20 1011 I personally evaluated the patient and discussed the management with Dr. Gomez I agree with the History, Examination, Assessment and Plan documented above with any addition or exceptions noted below. Unfortunate 74 yo F with metatstatic uterine cancer and subsequent hip fracture. Radiation Oncology was consulted not a candidate for radiation. Titrate up on morphine today. Palliative, rad onc, ortho, oncology have been consulted. Planning for home health vs SNF placement with hospice. Arrangements have been made with [facility]. Consider inpt hospice if pain mgt appears intractable. RA Pa
[2020-01-14] MEDS: Dexamethasone 4 MG TAB PO SCH ×2 (08:44→16:24)
[2020-01-14] MEDS: Calcium Carbonate 500 MG ChewTAB PO SCH ×2 (08:45→20:32)
[2020-01-14] MEDS: clonazePAM 0.5 MG TAB PO SCH ×2 (08:45→20:33)
[2020-01-14] MEDS: Hydrochlorothiazide 25 MG TAB PO SCH (08:46)
[2020-01-14] MEDS: Senokot S 8.6-50 MG TAB PO SCH ×2 (08:47→20:33)
[2020-01-14] MEDS: Gabapentin 300 MG CAP PO SCH ×3 (08:47→20:33)
[2020-01-14] MEDS: Carvedilol 25 MG TAB PO SCH ×2 (08:47→20:33)
[2020-01-14] MEDS: Heparin 5,000 UNITS/ML VIAL SC SCH ×3 (08:48→20:35)
[2020-01-14] MEDS: Polyethylene Glycol 3350 17 GM Packet PO SCH (08:48)
[2020-01-14] MEDS ORDERED: Lorazepam 0.5 MG TAB PO PRN (09:18)
[2020-01-14] MEDS ORDERED: Bisacodyl 10 MG SUPP PR PRN (09:50)
--- NOTE | 2020-01-14 13:32 | PDOC.PALPN ---
Palliative Progress Note - Subjective Awake, complains of weakness and pain. States pain is a 5-6 and is because she just had a bath and "was moved around". - Objective Vital Signs: Vital Signs - Most Recent Temp Pulse Resp BP Pulse Ox 98.7 F 79 17 155/79 H 95 01/14/20 07:55 01/14/20 07:55 01/14/20 07:55 01/14/20 07:55 01/14/20 08:00 - Physical Exam Constitutional: ill appearing, mild distress HEENT: EOMI, moist MMs, sclera anicteric, poor dentition Respiratory: unlabored breathing Cardiovascular: RRR Gastrointestinal: soft Deviation from normal: mild tenderness Genitourinary: rivero catheter Musculoskeletal: no cyanosis, no clubbing Neurology: moves all 4 limbs Skin: cap refill <2 seconds, bruising, fragile, friable Psychiatric: A&O x 3, depressed - Assessment (1) Chronic pain due to malignant neoplastic disease Code(s): G89.3 - NEOPLASM RELATED PAIN (ACUTE) (CHRONIC) Current Visit: Yes Status: Acute (2) Palliative care encounter Code(s): Z51.5 - ENCOUNTER FOR PALLIATIVE CARE Current Visit: Yes Status: Acute (3) ANIBAL (acute kidney injury) Code(s): N17.9 - ACUTE KIDNEY FAILURE, UNSPECIFIED Current Visit: Yes Status : Acute (4) Edema Code(s): R60.9 - EDEMA, UNSPECIFIED Current Visit: Yes Status: Acute (5) Uterine cancer Code(s): C55 - MALIGNANT NEOPLASM OF UTERUS, PART UNSPECIFIED Current Visit: Yes Status: Acute - Plan Plan: Patient has elected to transition home with [facility] hospice. Concern remains over care needed at home, will relay information for [facility] [place] to [facility], patient and Fariha Cobos. No documented BM since 01/07 however patient with nausea and refuses Lactulose as well as supp. Poor intake, will relay to [facility]. OOHDNAR completed and DNAR, requested her sign. On chart for physician signature. Communicated with [facility] Communicated with Dr Gomez Please also refer to Josiah Palumbo RNdog food shredder operator notes in note section [30] minutes spent on this encounter with >50% of the time in counseling and coordination of care. - ROS Constitutional: weakness ENT: other (denies throat irritation, congestion) Respiratory: other (denies cough) Cardiology: other (denies chest pain or palpitations) Gastrointestinal: abdominal pain, constipation Genitourinary: retention (Rivero currently in secondary to retention) Musculoskeletal: leg pain, limited mobility Skin: bruising
--- NOTE | 2020-01-15 06:44 | PDOC.FM ---
- Subjective Subjective: NAEO. Patient slightly anxious about going home but understands she cannot stay in the hospital 2/2 anxiety. Reports pain was much better yesterday with higher morphine dose. Still no BM but denies any N/V or abdominal pain/distension. Rivero removed & voiding normally. - Objective MAR Reviewed: Yes Vital Signs & Weight: Vital Signs (12 hours) Temp Pulse Resp BP Pulse Ox 01/14/20 19:41 98 01/14/20 19:40 98.6 F 93 20 137/74 98 Weight Admit Weight 112.536 kg Weight 112.536 kg I&O: 01/13/20 01/14/20 01/15/20 06:59 06:59 06:59 Intake Total 1020 1400 1350 Output Total 4300 1800 2730 Balance -0001 -478 -1776 Result Diagrams: 01/03/20 09:39 01/11/20 05:22 Phys Exam - Physical Examination Constitutional: NAD HEENT: moist MMs Neck: supple, full ROM Respiratory: no wheezing, no rales, no rhonchi, clear to auscultation bilateral Cardiovascular: RRR, no significant murmur Gastrointestinal: soft, non-tender, no distention, positive bowel sounds Musculoskeletal: no edema LLE with clean & dry dressing & ELADIO wrap in place Neurological: non-focal, moves all 4 limbs Psychiatric: normal affect, A&O x 3 Skin: no rash Dx/Plan (1) ANIBAL (acute kidney injury) Code(s): N17.9 - ACUTE KIDNEY FAILURE, UNSPECIFIED Status: Acute (2) Chronic pain due to malignant neoplastic disease Code(s): G89.3 - NEOPLASM RELATED PAIN (ACUTE) (CHRONIC) Status: Acute (3) HTN (hypertension) Code(s): I10 - ESSENTIAL (PRIMARY) HYPERTENSION Status: Acute (4) Leg pain, left Code(s): M79.605 - PAIN IN LEFT LEG Status: Acute (5) Palliative care encounter Code(s): Z51.5 - ENCOUNTER FOR PALLIATIVE CARE Status: Acute (6) Uterine cancer Code(s): C55 - MALIGNANT NEOPLASM OF UTERUS, PART UNSPECIFIED Status: Acute - Plan Plan: 74 yo F with PMH metastatic uterine cancer transferred from [place] for dehydration and kidney injury: Left iliac wing fracture 2/2 metastatic cancer - Ortho consulted: Non-surgical. - Rad/Onc consulted. Pt not tolerating movement for radiation. - Home with home hospice today. - Palliative on board for family support placed. ANIBAL on CKDIII, resolved - Renal fxn @ baseline with last BMP & adequate UO with rivero in place. Urinary retention & Constipation - Rivero in place. Will d/c w/ rivero per hospice recs for them to manage at home. - likely iatrogenic 2/2 to opioid usage. Pt still has not complained of abdominal pain. Metastatic uterine cancer - metastasis in abdomen, lung - Oncology & Rad/Once, Dr. Whitfield & Tim consulted & patient opted for hospice rather than proceeding with chemo and/or radiation. Lower extremity edema with weeping and posterior leg ulcerations, improved - monitor strict IOs. - Wound care on board. Will continue wound care with hospice. Normocytic anemia - stable HTN - Continue coreg and HCTZ. Improved. - Recommend adequate hydration when going home on HCTZ. Diet: regular DVT ppx: Lovenox Dispo: Home w/ home hospice. Code Status: DNAR. Addendum - Attending - Attending Attestation Date/Time: 01/15/20 [id number] I personally evaluated the patient and discussed the management with Dr. Gomez I agree with the History, Examination, Assessment and Plan documented above with any addition or exceptions noted below. Unfortunate 74 yo F with metastatic uterine cancer and subsequent hip fracture. Improved pain control overnight, tolerated PO today. [facility] as well as [facility] per family decision. RA Pa
[2020-01-15] MEDS: Morphine 4 MG/ML VIAL SLOW IVP PRN ×2 (07:35→13:57)
[2020-01-15] MEDS ORDERED: Enoxaparin Sodium 40 MG/0.4 ML SYRINGE SC SCH (09:00)
[2020-01-15] MEDS: Calcium Carbonate 500 MG ChewTAB PO SCH (09:18)
[2020-01-15] MEDS: Hydrochlorothiazide 25 MG TAB PO SCH (09:19)
[2020-01-15] MEDS: Senokot S 8.6-50 MG TAB PO SCH (09:20)
[2020-01-15] MEDS: clonazePAM 0.5 MG TAB PO SCH (09:20)
[2020-01-15] MEDS: Carvedilol 25 MG TAB PO SCH (09:21)
[2020-01-15] MEDS: Dexamethasone 4 MG TAB PO SCH ×2 (09:21→16:17)
[2020-01-15] MEDS: Gabapentin 300 MG CAP PO SCH ×2 (09:21→14:00)
[2020-01-15] MEDS: Polyethylene Glycol 3350 17 GM Packet PO SCH (09:22)
[2020-01-15] MEDS: HYDROcodone/Acetaminophen 10/325 mg Tablet PO PRN ×2 (09:27→16:16)
[2020-01-15 15:48] VITALS: BP 133/88; TEMP 97.7
--- NOTE | 2020-01-16 06:20 | PQF ---
MAYUR GOODEN ROBERT A MD [id number]- [id number] CLINICAL DOCUMENTATION CLARIFICATION FORM: POST DISCHARGE Addendum to original discharge summary date: ____ Late entry note date: __ DATE: 01/16/2020 ATTN: Sheng Yoder Please exercise your independent, professional judgment in responding to the clarification form. Clinical indicators are provided on the bottom of this form for your review Please check appropriate box(s): [ ] Hypovolemic Shock [ ] Shock Unspecified [ ] Other diagnosis [ ] Unable to determine In addition, please specify: Present on Admission (POA): [ ] Yes [ ] No [ ] Unable to determine For continuity of documentation, please document condition throughout progress notes and discharge summary. Thank You. CLINICAL INDICATORS - SIGNS / SYMPTOMS / LABS Laboratory 12/31 Potassium 3.3, BUN 57, creatinine 2.21, GFR 22 Vital signs 12/31 Pulse 87, Resp 19, temp 98.0 H&P p1 12/31 Dr Phipps presented with Nausea, vomiting and decreased urine output H&P p1 12/31 Dr Phipps Reports 2 day history of decreased PO intake, N/V H&P p1 12/31 Dr Phipps Reports lower extremity edema and redness H&P p4 12/31 Dr Phipps 'ANIBAL on CKD3 2/2 hypovolemia, dehydration Vital Signs BP: 12/3107=834/56 05/74=349/57,104/58 RISK FACTORS H&P p1 12/31 - 74 year-old Female H&P p1 12/31 - Hypertension H&P p1 12/31 - Uterine cancer H&P p4 12/31 - ANIBAL on CKD3 H&P p4 12/31 - Hypovolemia H&P p4 12/31 - dehydration H&P p4 12/31 - Hypokalemia H&P p4 5/5 -Metastatic cancer to abdomen and Lung H&P p4 12/31 -Anemia TREATMENTS: MAR 12/31 IV Bolus of Normal Saline 1L MAR 12/31 IV Lactated Ringer 1L Warner catheter insertion 12/31 (This form is maintained as a part of the permanent medical record) 2014 [employer], [employer]. All Rights Reserved [email or web address]
--- NOTE | 2020-01-16 06:21 | PQF ---
MAYUR GOODEN ROBERT A MD [id number]- [id number] CLINICAL DOCUMENTATION CLARIFICATION FORM: POST DISCHARGE Addendum to original discharge summary date: ____ Late entry note date: __ Date: 01/16/2020 ATTN:Sheng Yoder Please exercise your independent, professional judgment in responding to the clarification form. Clinical indicators are provided on the bottom of this form for your review Please check appropriate box(s): [ ] Protein Calorie Malnutrition: [ ] Mild [ ] Moderate [ ] Severe [ ] Other Malnutrition (please specify) __ [ ] Underweight without malnutrition [ ] Cachexia [ ] Other diagnosis [ ] Unable to determine CLINICAL INDICATORS - SIGNS / SYMPTOMS / LABS BMI of 37.7-Dietary consult 01/09 Dietary consult 01/09 Decreased appetite, dislike of food Dietary consult 01/09 non-pitting edema noted to BLE Dietary consult 01/09 Oral intakes 56% only Labs Albumin: 12/31=3.0 05/=2.8 Labs Total Protein: 05=5.5 05/06=5.1 RISK FACTORS H&P p1 12/31 - 74 year-old Female H&P p1 12/31 - Hypertension H&P p1 12/31 - Uterine cancer H&P p4 12/31 - Ashu on CKD3 H&P p4 12/31 - Hypovolemia H&P p4 12/31 - dehdyration H&P p4 12/31 - Hypokelemia H&P p4 12/31 -Metastatic cancer to abdomen and Lung H&P p4 12/31 -Anemia TREATMENT: Dietary consult -Dietary consult 01/09 Monitor weight -Dietary consult 01/09 On oral supplement Ensure -Dietary consult 01/09 Moderate Malnutrition (in acute illness) Energy Intake: <75% of estimated energy requirement for > 7 days Weight Loss: 1-2%/1 week; 5%/ 1 month; 7.5%/3 months Other: mild body fat loss; mild muscle mass loss; mild fluid accumulation; Severe Malnutrition (in acute illness) Energy Intake: < 50% of estimated energy requirement for > 5 days Weight Loss: >1-2%/1 week; >5%/1 month; >7.5%/3 months Other: moderate body fat loss; moderate muscle mass loss; moderate- severe fluid accumulation; 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 Moderate Malnutrition (in chronic illness) Energy Intake: <75% of estimated energy requirement for >1 month Weight Loss: 5%/1 month; 7.5%/3 months; 10%/6 months; 20%/1 year Other: mild body fat loss; mild muscle mass loss; mild fluid accumulation Severe Malnutrition (in chronic illness) Energy Intake: <75% of estimated energy requirement for >1 month Weight Loss: >5%/1 month; >7.5%/3 months; >10%/6 months; >20%/1 year Other: severe body fat loss; severe muscle mass loss; severe fluid accumulation ; 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 All Rights Reserved [email or web address]
--- NOTE | 2020-01-16 11:23 | DIS ---
DATE OF ADMISSION: 01/01/2020 DATE OF DISCHARGE: 01/15/2020 RESIDENT: Selene Gomez MD ADMITTING ATTENDING: Sheng Pa MD DISCHARGE ATTENDING: Sheng Pa MD CONSULTS: 1. Orthopedics, Jm Galaviz MD. 2. Radiation Oncology, William Dumont MD. 3. Oncology, Rodríguez Whitfield MD. 4. Palliative Care, LEANN Verma. PROCEDURES PERFORMED: 1. Chest x-ray on 01/01/2020, notable for large number of small bilateral pulmonary nodules consistent with pulmonary metastasis. 2. Echocardiogram on 01/02/2020, notable for an EF estimated at 55% to 60% with a mildly dilated left atrium and impaired relaxation compatible with diastolic dysfunction as well as moderate mitral valve regurgitation. 3. Hip x-ray on 01/03/2020, notable for a fracture involving the supra- acetabular region of the left iliac bone. Displaced fracture fragment is also seen laterally. There is sclerotic appearance of left iliac bone suspicious for metastatic disease. 4. Pelvic x-ray on 01/03/2020, notable for displaced left iliac wing fracture. 5. Pelvis CT on 01/04/2020, notable for several fractures involving an abnormal left bony pelvis representing acute, traumatic, and pathologic fractures of metastatic lesion and pathologic fractures. The left fracture of the iliac wing is comminuted and mildly displaced. Fracture of the left acetabulum initial tuberosity are nondisplaced. Combination of large soft tissue malignant metastatic tumor component and traumatic hematoma, involving the left hip and left thigh. PRIMARY DIAGNOSES: 1. Acute kidney injury on chronic kidney disease 3. 2. Pathologic left hip fracture secondary to metastatic uterine cancer. 3. Hypokalemia. 4. Heart failure with preserved ejection fraction. 5. Normocytic anemia. 6. Urinary retention. SECONDARY DIAGNOSES: 1. Uterine cancer. 2. Hypertension. 3. Chronic kidney disease stage 3. DISCHARGE MEDICATIONS: 1. Carvedilol 25 mg p.o. b.i.d. 2. Dulcolax 10 mg PO daily p.r.n. 3. Tums 1000 mg p.o. q.4 hours p.r.n. 4. Clonazepam 0.5 mg p.o. b.i.d. 5. Fentanyl 50 mcg transdermally every three days. 6. Gabapentin 300 mg p.o. t.i.d. 7. HCTZ 12.5 mg p.o. daily. 8. Hydrocodone/acetaminophen 10/325 mg two tabs p.o. q.4 hours p.r.n. 9. Hydrocodone/acetaminophen 10/325 mg one tablet p.o. q.4 hours p.r.n. 10. Ativan 0.5 mg p.o. q.6 hours p.r.n. 11. Robaxin 500 mg p.o. q.i.d. p.r.n. 12. Morphine 8 mg IM q.4 hours p.r.n. 13. Zofran 4 mg p.o. q.6 hours p.r.n. 14. Protonix 40 mg p.o. daily. 15. MiraLAX 17 g p.o. daily. 16. Senokot S 8.6/50 mg tabs one tab p.o. b.i.d. DISCONTINUED MEDICATIONS: Morphine ER 30 mg p.o. q.8 hours. HOSPITAL COURSE: The patient is a 74-year-old female with a past medical history notable for uterine cancer and hypertension, who presented to the emergency department for evaluation of decreased p.o. intake and urinary output with associated nausea and vomiting for approximately 2 days prior to presentation. She was first seen in an outside facility in [place], where she was noted to be dehydrated with an acute kidney injury and was therefore transferred to [facility] for further evaluation and management. In addition, the patient reported lower extremity edema and erythema on the left that she believed to be a side effect from her p.o. morphine use for malignancy pain that was reportedly improving. On evaluation in the [facility] Emergency Department, the patient's vital signs were noted to be within normal limits. On arrival, she was given a liter of lactated Ringer's and 40 mEq of p.o. potassium as her laboratories were notable for acute kidney injury with BUN and creatinine of 57 and 2.21 with EGFR of 22, significantly below her baseline range of CKD 3. She also had hypokalemia with a potassium of 3.3. From the ER, the patient was transferred to this medical unit for continued IV hydration overnight. Regarding the patient's dehydration and ANIBAL, she was given IV fluid supplementation on and off over the course of her hospital stay and antiemetics as needed and by the date of discharge, her renal function was within baseline range with BUN and creatinine of 31 and 0.95 and EGFR 58. In addition, her potassium level by the date of discharge was within normal limits at 4.6. Regarding the patient's lower extremity edema and erythema, a left hip x-ray was obtained on 01/03/2020 and was remarkable for what appeared to be a pathologic fracture of her left iliac bone. Orthopedics, Dr. Jm Galaviz, was therefore consulted for further recommendations and obtained a pelvis CT with the findings noted above. Given the patient's widespread metastases, Dr. Galaviz determined that the fracture was nonoperable. Regarding the patient's decreased urinary output, she had a Warner catheter placed shortly after admission which was removed about correction through her hospital course. However, upon removal, the patient continued to have issues voiding, which was thought to most likely be secondary to her heavy opioid use for control of her malignant pain. A Warner catheter was therefore left in place upon discharge with instructions to follow up with hospice for further recommendations regarding its removal and routine Warner care. Regarding the patient's metastatic uterine cancer, essentially all imaging studies for the duration of her hospital stay were notable for a significant metastatic burden. Therefore, her oncologist, Dr. Rodríguez Whitfield, Radiation Oncology, Dr. William Dumont, & palliative care were consulted to discuss the patient's prognosis and goals of care. The patient ultimately opted to be discharged home with home hospice services for continued comfort care measures as she felt she was too weak to be able to tolerate ongoing radiation and chemotherapy. She was therefore discharged home on 01/15/2020 with plans to receive services from [facility], as well as [facility] for additional assistance. DISPOSITION: Stable. DISCHARGE INSTRUCTIONS: 1. Location: Home. 2. Diet: Heart healthy, low-sodium diet. 3. Activity: As tolerated. Restrictions per hospice recommendations given pathologic fracture noted on admission. 4. Follow-up: The patient was instructed to follow up with [facility] as well as her primary care provider, Dr. Chaz Narvaez, within a week of discharge. Job ID: [id number] MTDD
== END 2020-01-15 16:44 | disposition hospice, home (50) | DRG 683 ==
LOC: ERS 16:41 → OBSVTOIN 18:06 → T4-A 18:06
PROVIDERS: ADMIT Family Medicine; ATTEND Family Medicine
PROC: 0T9B70Z Drainage of Bladder with Drainage Device, Via Natural or Artificial Opening (ICD-10-PCS; 2020-01-06)
PROC: DPY Radiation Therapy, Musculoskeletal System, Other Radiation (ICD-10-PCS; principal; 2020-01-07)
DX: N17.9 Acute kidney failure, unspecified (principal); Z66 Do not resuscitate; Z51.5 Encounter for palliative care; C78.00 Secondary malignant neoplasm of unspecified lung; C79.89 Secondary malignant neoplasm of other specified sites; M84.552A Pathological fracture in neoplastic disease, left femur, initial encounter for fracture; M84.559A Pathological fracture in neoplastic disease, hip, unspecified, initial encounter for fracture; M84.550A Pathological fracture in neoplastic disease, pelvis, initial encounter for fracture; C79.51 Secondary malignant neoplasm of bone; L97.909 Non-pressure chronic ulcer of unspecified part of unspecified lower leg with unspecified severity; C56.9 Malignant neoplasm of unspecified ovary; N18.3 Chronic kidney disease, stage 3 (moderate); E86.1 Hypovolemia; E86.0 Dehydration; C55 Malignant neoplasm of uterus, part unspecified; R33.9 Retention of urine, unspecified; E87.6 Hypokalemia; M54.9 Dorsalgia, unspecified; I87.8 Other specified disorders of veins; R11.2 Nausea with vomiting, unspecified; G89.3 Neoplasm related pain (acute) (chronic); T40.2X5A Adverse effect of other opioids, initial encounter; I12.9 Hypertensive chronic kidney disease with stage 1 through stage 4 chronic kidney disease, or unspecified chronic kidney disease; E83.42 Hypomagnesemia; K59.00 Constipation, unspecified; Z88.0 Allergy status to penicillin; Z79.899 Other long term (current) drug therapy; Z79.891 Long term (current) use of opiate analgesic; Z90.710 Acquired absence of both cervix and uterus
CPT/HCPCS: 36415; 36416; 51701; 71045; 72170; 72192; 76377; 80048; 80053; 81003; 81015; 82550; 82570; 83735; 83880; 84300; 85025; 87040; 87086; 93005; 93306; J1642; J1644; J1650; J1885; J2270; J2405; J3475; J3489; J3490; J8540; Q0162